=== PATIENT | female | born 1975 | race American Indian/Alaskan Native ===

== ENCOUNTER 2019-08-18 10:53 | Inpatient (IN) | payer OTHER ==
[2019-08-18 11:28] LABS: Bacteria,Urine 1+ /HPF (Negative); Bilirubin,Urine NEG (Negative); Blood,Urine NEG (Negative); Color,Urine Colorless (Yellow); Protein,Urine <15 mg/dL mg/dL (Negative); Urobilinogen,Urine < 2.0 mg/dL (<2.0)
[2019-08-18 11:44] LABS: Basophils % (Auto) 0.3 % (0.0-1.8); Lymphocytes # (Auto) 0.9 K/mm3 (1.2-5.4); Lymphocytes % (Auto) 12.8 % (13.4-35.0); Mean Corpuscular HGB Conc 30 % (30-34); Mean Corpuscular Volume 96 fl (79-97); Monocytes # (Auto) 0.5 K/mm3 (0.0-0.8); Monocytes % (Auto) 7.9 % (0.0-7.3); Platelet Count 286 K/mm3 (140-440); Red Blood Count 5.02 M/mm3 (3.65-5.03); Red Cell Distribution Width 15.4 % (13.2-15.2)
[2019-08-18 11:46] LABS: Hematocrit 48.4 % (30.3-42.9); Hemoglobin 14.7 gm/dl (10.1-14.3)
[2019-08-18] MEDS ORDERED: ONDANSETRON 4 MG/2 ML INJ IV ONE (12:12)
[2019-08-18 12:20] LABS: Albumin 4.4 g/dL (3.9-5); Calcium 11.4 mg/dL (8.4-10.2)
--- NOTE | 2019-08-18 13:00 | Emergency Department Report ---
HPI - General Chief Complaint: Nausea/Vomiting/Diarrhea Time Seen by Provider: 08/18/19 12:11 - HPI HPI: 44-year-old -[place] female presents to the emergency department with complaint of a 1 week history of nausea, vomiting and diarrhea and the patient says "I am dehydrated." The patient denies any past medical history but she also does not follow regularly with any primary care physician and says her last physical examination was greater than 4 years ago. She has not taken anything for her symptoms prior to presentation. Denies any recent travel or sick contacts at home. No fever, chest pain, lower extremity swelling. She does complain of some generalized weakness and fatigue. The patient will occasionally feel short of breath. ED Past Medical Hx - Past Medical History Previous Medical History?: No - Surgical History Past Surgical History?: No - Social History Smoking Status: Never Smoker Substance Use Type: None ED Review of Systems ROS: Stated complaint: SOB/NAUSEA Other details as noted in HPI Comment: All other systems reviewed and negative Constitutional: weakness. denies: fever Eyes: denies: eye pain, vision change ENT: denies: ear pain, throat pain Respiratory: shortness of breath. denies: cough Cardiovascular: denies: chest pain, palpitations Gastrointestinal: abdominal pain, nausea, vomiting, diarrhea Genitourinary: denies: dysuria, discharge Musculoskeletal: denies: back pain, arthralgia Skin: denies: rash, lesions Neurological: denies: headache, numbness Physical Exam - Physical Exam Vital Signs: Vital Signs 08/18/19 11:00 Temperature 98.8 F Pulse Rate 125 H Respiratory 18 Rate Blood Pressure 183/100 O2 Sat by Pulse 94 Oximetry Physical Exam: GENERAL: Ill-appearing. HENT: Normocephalic. Atraumatic. Patient has moist mucous membranes. EYES: Extraocular motions are intact. NECK: Supple. Trachea is midline. CHEST/LUNGS: Clear to auscultation. There is no respiratory distress noted. HEART/CARDIOVASCULAR: Regular. There is moderate tachycardia. There is no murmur. ABDOMEN: Abdomen is soft, nontender. Patient has normal bowel sounds. Obese habitus. SKIN: Skin is warm and dry. NEURO: The patient is awake, alert, and cooperative. The patient has no focal neurologic deficits. Normal speech. MUSCULOSKELETAL: There is no tenderness or deformity. There is no evidence of acute injury. ED Course Vital Signs 08/18/19 11:00 Temperature 98.8 F Pulse Rate 125 H Respiratory 18 Rate Blood Pressure 183/100 O2 Sat by Pulse 94 Oximetry ED Medical Decision Making - Lab Data Result diagrams: 08/18/19 11:18 08/18/19 11:18 - Radiology Data Radiology results: image reviewed interpreted by me: Chest x-ray does not show any acute process. There are no pleural effusions, obvious pneumonia and there is no pneumothorax. - Medical Decision Making This patient presents with a one-week history of nausea, vomiting, diarrhea and intermittent shortness of breath. She has some tachycardia. No signs of any respiratory distress. Patient had a critical high Accu-Chek of greater than 500. Labs came back consistent with both new onset diabetes and diabetic ketoacidosis with a blood sugar greater than 1500, an elevated anion gap and venous acidosis and the blood was positive for ketones. Given IV fluid resuscitation and started on insulin drip. The patient will be admitted to the ICU and has been accepted by the hospitalist, Dr. Roberts. - Differential Diagnosis DKA, HHNK, Food Poisoning, Sepsis Critical Care Time: Yes Critical care time in (mins) excluding proc time.: 35 Critical care attestation.: If time is entered above; I have spent that time in minutes in the direct care of this critically ill patient, excluding procedure time. Critical care time was spent on this patient and doing her initial evaluation, multiple re- evaluations, ordering and interpretation of labs and imaging, ordering of IV fluid resuscitation and the insulin drip. Critical Care Time: 35 minutes ED Disposition Clinical Impression: Diabetes mellitus, new onset Diabetic keto-acidosis Qualifiers: Diabetes mellitus type: other specified (including NASEEM) Diabetes mellitus complication detail: without coma Qualified Code(s): E13.10 - Other specified diabetes mellitus with ketoacidosis without coma Disposition: 09 OP ADMIT IP TO THIS HOSP Is pt being admited?: Yes Condition: Serious Time of Disposition: 13:01
[2019-08-18] MEDS ORDERED: SODIUM CHLORIDE 0.9% 1000 ML 1,000 ML ONE ×2 (13:25→15:46)
--- NOTE | 2019-08-18 13:27 | XRay Report ---
CHEST 1 VIEW 08/18/2019 12:59 PM INDICATION / CLINICAL INFORMATION: SOB. COMPARISON: None available. FINDINGS: SUPPORT DEVICES: None. HEART / MEDIASTINUM: No significant abnormality. LUNGS / PLEURA: Lung volumes are reduced with bibasilar atelectasis. No additional significant pulmon wyatt abnormality or pleural effusion. No pneumothorax. ADDITIONAL FINDINGS: No significant additional findings. IMPRESSION: 1. No acute abnormality of the chest. 2. Low lung volumes with bibasilar atelectasis. Signer Name: Juanito Pack MD Signed: 08/18/2019 1:23 PM Workstation Name: [id number]
[2019-08-18] MEDS ORDERED: INSULIN REGULAR, HUMAN 100 UNITS in SODIUM CHLORIDE 0.9% 99 ML IV SCH ×3 (14:00→23:00)
[2019-08-18] MEDS ORDERED: SODIUM CHLORIDE 0.9% 1000 ML 2,000 ML IV ONE (14:42)
[2019-08-18] MEDS ORDERED: ACETAMINOPHEN 325 MG TAB PO PRN (16:34)
--- NOTE | 2019-08-18 16:34 | History and Physical Report ---
History of Present Illness Date of examination: 08/18/19 Date of admission: 08/18/19 13:02 Chief complaint: Generalized weakness and vomiting for 3 days History of present illness: 43-year-old -[place] female with no significant past medical history comes in for generalized weakness and nausea and vomiting for 3 days. Patient says that she feels dehydrated. Patient has polyuria and polydipsia. Patient has not seen a primary care physician in the last 4 years. Patient does not know that she has diabetes. Patient also has blurred vision. No dysuria. No fever or chills. No shortness of breath. Feels very weak. Past Medical History Previous Medical History?: No Surgical History Past Surgical History?: No Social History Smoking Status: Never Smoker Substance Use Type: None Family history HTN Review of Systems ROS: Stated complaint: SOB/NAUSEA Other details as noted in HPI Comment: All other systems reviewed and negative Constitutional: weakness. denies: fever Eyes: denies: eye pain, vision change ENT: denies: ear pain, throat pain Respiratory: shortness of breath. denies: cough Cardiovascular: denies: chest pain, palpitations Gastrointestinal: abdominal pain, nausea, vomiting, diarrhea Genitourinary: denies: dysuria, discharge Musculoskeletal: denies: back pain, arthralgia Skin: denies: rash, lesions Neurological: denies: headache, numbness Medications and Allergies Allergies Allergy/AdvReac Type Severity Reaction Status Date / Time No Known Allergies Allergy Unverified 08/18/19 10:54 Active Meds: Active Medications Insulin Human Regular 100 (units/ Sodium Chloride) 100 mls @ 6 mls/hr IV TITR BIMAL; Protocol Last Admin: 08/18/19 14:30 Dose: 6 units/hr, 6 mls/hr Documented by: Sodium Chloride (Nacl 0.9% 1000 Ml) 2,000 mls @ 999 mls/hr IV BOLUS ONE Stop: 08/18/19 16:42 Last Admin: 08/18/19 14:44 Dose: 999 mls/hr Documented by: Exam - Constitutional Vitals: Temp Pulse Resp BP Pulse Ox 98.8 F 116 H 24 133/95 95 08/18/19 11:00 08/18/19 14:01 08/18/19 14:30 08/18/19 14:30 08/18/19 14:30 General appearance: Present: no acute distress, well-nourished - EENT Eyes: Present: PERRL ENT: hearing intact, clear oral mucosa - Neck Neck: Present: supple, normal ROM - Respiratory Respiratory effort: normal Respiratory: bilateral: CTA - Cardiovascular Heart rate: 88 Rhythm: regular Heart Sounds: Present: S1 & S2. Absent: rub, click - Extremities Extremities: no ischemia, pulses intact, pulses symmetrical, No edema Peripheral Pulses: within normal limits - Abdominal General gastrointestinal: Present: soft, non-tender, non-distended, normal bowel sounds Female genitourinary: Present: normal - Rectal Rectal Exam: deferred - Integumentary Integumentary: Present: clear, warm, dry - Musculoskeletal Musculoskeletal: gait normal, strength equal bilaterally - Psychiatric Psychiatric: appropriate mood/affect, intact judgment & insight - Neurologic Neurologic: CNII-XII intact, moves all extremities - Allied Health Allied health notes reviewed: nursing, case management Results - Labs CBC & Chem 7: 08/18/19 11:18 08/18/19 21:27 Labs: Laboratory Last Values WBC 6.9 K/mm3 (4.5-11.0) 08/18/19 11:18 RBC 5.02 M/mm3 (3.65-5.03) 08/18/19 11:18 Hgb 14.7 gm/dl (10.1-14.3) H 08/18/19 11:18 Hct 48.4 % (30.3-42.9) H 08/18/19 11:18 MCV 96 fl (79-97) 08/18/19 11:18 MCH 29 pg (28-32) 08/18/19 11:18 MCHC 30 % (30-34) 08/18/19 11:18 RDW 15.4 % (13.2-15.2) H 08/18/19 11:18 Plt Count 286 K/mm3 (140-440) 08/18/19 11:18 Lymph % (Auto) 12.8 % (13.4-35.0) L 08/18/19 11:18 [place] % (Auto) 7.9 % (0.0-7.3) H 08/18/19 11:18 Eos % (Auto) 0.0 % (0.0-4.3) 08/18/19 11:18 Baso % (Auto) 0.3 % (0.0-1.8) 08/18/19 11:18 Lymph # 0.9 K/mm3 (1.2-5.4) L 08/18/19 11:18 [place] # 0.5 K/mm3 (0.0-0.8) 08/18/19 11:18 Eos # 0.0 K/mm3 (0.0-0.4) 08/18/19 11:18 Baso # 0.0 K/mm3 (0.0-0.1) 08/18/19 11:18 Seg Neutrophils % 79.0 % (40.0-70.0) H 08/18/19 11:18 Seg Neutrophils # 5.5 K/mm3 (1.8-7.7) 08/18/19 11:18 VBG pH 7.302 (7.320-7.420) L 08/18/19 12:34 Sodium 129 mmol/L (137-145) L 08/18/19 11:18 Potassium 5.0 mmol/L (3.6-5.0) 08/18/19 11:18 Chloride 83.9 mmol/L (98-107) L 08/18/19 11:18 Carbon Dioxide 17 mmol/L (22-30) L 08/18/19 11:18 Anion Gap 33 mmol/L 08/18/19 11:18 BUN 35 mg/dL (7-17) H 08/18/19 11:18 Creatinine 1.1 mg/dL (0.7-1.2) 08/18/19 11:18 Estimated GFR 54 ml/min 08/18/19 11:18 BUN/Creatinine Ratio 32 % 08/18/19 11:18 Glucose 1522 mg/dL (65-100) H* 08/18/19 11:18 POC Glucose > 500 (70-105) H 08/18/19 15:35 Ketones Quantitative Moderate (Negative) 08/18/19 12:34 Calcium 11.4 mg/dL (8.4-10.2) H 08/18/19 11:18 Total Bilirubin 0.30 mg/dL (0.1-1.2) 08/18/19 11:18 AST 19 units/L (5-40) 08/18/19 11:18 ALT 38 units/L (7-56) 08/18/19 11:18 Alkaline Phosphatase 121 units/L (35-129) 08/18/19 11:18 Total Protein 9.5 g/dL (6.3-8.2) H 08/18/19 11:18 Albumin 4.4 g/dL (3.9-5) 08/18/19 11:18 Albumin/Globulin Ratio 0.9 % 08/18/19 11:18 HCG, Qual Negative (Negative) 08/18/19 11:22 Urine Color Colorless (Yellow) 08/18/19 11:15 Urine Turbidity Clear (Clear) 08/18/19 11:15 Urine pH 6.0 (5.0-7.0) 08/18/19 11:15 Ur Specific [place] 1.026 (1.003-1.030) 08/18/19 11:15 Urine Protein <15 mg/dl mg/dL (Negative) 08/18/19 11:15 Urine Glucose (UA) >=500 mg/dL (Negative) 08/18/19 11:15 Urine Ketones 20 mg/dL (Negative) 08/18/19 11:15 Urine Blood Neg (Negative) 08/18/19 11:15 Urine Nitrite Neg (Negative) 08/18/19 11:15 Urine Bilirubin Neg (Negative) 08/18/19 11:15 Urine Urobilinogen < 2.0 mg/dL (<2.0) 08/18/19 11:15 Ur Leukocyte Esterase Tr (Negative) 08/18/19 11:15 Urine WBC (Auto) 11.0 /HPF (0.0-6.0) H 08/18/19 11:15 Urine RBC (Auto) 6.0 /HPF (0.0-6.0) 08/18/19 11:15 Urine Bacteria (Auto) 1+ /HPF (Negative) 08/18/19 11:15 Short CBC 08/18/19 Range/Units 11:18 WBC 6.9 (4.5-11.0) K/mm3 Hgb 14.7 H (10.1-14.3) gm/dl Hct 48.4 H (30.3-42.9) % Plt Count 286 (140-440) K/mm3 BMP 08/18/19 08/18/19 08/18/19 11:18 17:26 21:27 Sodium 129 L 142 D 146 H Potassium 5.0 5.2 H 4.5 Chloride 83.9 L 101.2 108.2 H Carbon Dioxide 17 L 21 L 22 BUN 35 H 37 H 37 H Creatinine 1.1 1.2 1.3 H Glucose 1522 H* 1039 H* 786 H* Calcium 11.4 H 12.0 H 11.8 H Liver Function 08/18/19 Range/Units 11:18 Total Bilirubin 0.30 (0.1-1.2) mg/dL AST 19 (5-40) units/L ALT 38 (7-56) units/L Alkaline Phosphatase 121 (35-129) units/L Albumin 4.4 (3.9-5) g/dL Urine 08/18/19 Range/Units 11:15 Urine Color Colorless (Yellow) Urine pH 6.0 (5.0-7.0) Ur Specific [place] 1.026 (1.003-1.030) Urine Protein <15 mg/dl (Negative) mg/dL Urine Glucose (UA) >=500 (Negative) mg/dL - Imaging and Cardiology EKG: report reviewed Chest x-ray: report reviewed (no acute findings) Assessment and Plan Assessment and plan: Critical care time 40 minutes Advance Directives: Yes (full code) VTE prophylaxis?: Chemical Plan of care discussed with patient/family: Yes - Patient Problems (1) Hyperosmolar non-ketotic state in patient with type 2 diabetes mellitus Current Visit: Yes Status: Acute Plan to address problem: Patient's clinical picture and labs and history consistent with new-onset diabetes and hyperosmolar state. Ketones are only 20 in the urine. Anion gap is 30 Patient is not in diabetic ketoacidosis Insulin drip initiated IV fluids initiated Follow-up fluids are half-normal saline because patient has a tendency for hyper natremia Patient did get diabetes education I've discussed with the patient but patient says she is very sleepy Primary team to discuss her new-onset diabetes and the need for regular follow- ups Also either basal bolus regimen or Novolin 70/30 twice a day Hemoglobin A1c is very high indicating patient has diabetes for last 6 months to 1 year (2) Hyponatremia Current Visit: Yes Status: Acute Plan to address problem: Should correct with correction of blood glucose Patient has pseudohyponatremia (3) Metabolic acidosis Current Visit: Yes Status: Acute Plan to address problem: Should correct with correction of blood glucose Metabolic acidosis is moderate (4) Urinary tract infection Current Visit: Yes Status: Acute Qualifiers: Urinary tract infection type: acute cystitis Plan to address problem: IV Rocephin 1 g IV piggyback every 24 (5) DVT prophylaxis Current Visit: Yes Status: Acute Plan to address problem: On heparin and GI prophylaxis
[2019-08-18] MEDS ORDERED: DEXTROSE 50% IN WATER (25GM) 50 ML SYRINGE IV PRN (16:39)
[2019-08-18] MEDS ORDERED: POTASSIUM CHLORIDE 10 MEQ 10 MEQ/100 ML BAG IV SCH (17:00)
[2019-08-18] MEDS ORDERED: POTASSIUM CHLORIDE 10 MEQ 10 MEQ/100 ML BAG IV PRN ×2 (17:00→18:00)
[2019-08-18 22:05] LABS: Calcium 11.8 mg/dL (8.4-10.2)
[2019-08-18] MEDS: FAMOTIDINE 20 MG/2 ML INJ IV SCH (23:25)
[2019-08-18] MEDS ORDERED: SODIUM CHLORIDE 0.45% 500 ML IV SCH (23:45)
[2019-08-19 02:23] LABS: Calcium 11.9 mg/dL (8.4-10.2)
[2019-08-19 03:56] LABS: Calcium 11.5 mg/dL (8.4-10.2)
[2019-08-19 03:58] LABS: Calcium 11.6 mg/dL (8.4-10.2)
[2019-08-19 05:46] LABS: Calcium 11.6 mg/dL (8.4-10.2)
[2019-08-19] MEDS ORDERED: INSULIN NPH/REGULAR 70/30 INJ SUB-Q SCH (08:00)
[2019-08-19] MEDS ORDERED: LINAGLIPTIN 5 MG TAB PO SCH (08:00)
[2019-08-19 08:30] LABS: Calcium 11.6 mg/dL (8.4-10.2)
[2019-08-19] MEDS ORDERED: INSULIN GLARGINE 100 UNITS/ML SUB-Q ONE (09:10)
[2019-08-19] MEDS ORDERED: INSULIN REGULAR, HUMAN 100 UNITS/1 ML ONE ×3 (10:37→15:32)
[2019-08-19] MEDS: INSULIN LISPRO 100 UNIT/ML SUB-Q SCH ×6 (10:45→23:26)
[2019-08-19] MEDS: cefTRIAXone/NS 1 GM/50 ML 1 GM/50 ML BAG IV SCH (10:56)
--- NOTE | 2019-08-19 13:18 | Progress Note ---
Assessment and Plan Assessment and plan: HHS in newly diagnosed DM -started on SC insulin regimen, adjust as needed -off insulin drip -hba1c: 12.4 -diabetic teaching before d/c Intractable N/V -improving -on anti-emetics CONCHIS due to dehydration -cont IVF, will monitor cr level Hypernatremia due to dehydration -cont IVF, will monitor Na level Possible UTI -on IV Rocephin -urine culture insignificant Pseudohyponatremia due to hyperglycemia -resolved Hyperkalemia -resolved Morbid obesity with BMI of 40.4 -lifestyle modifications recommended DVT ppx: SCD Disp: will downgrade pt to med/surg floor. For possible d/c tomorrow if BG rem ains stable History Interval history: Pt complained of generalized abd pain. No n/v. Hospitalist Physical - Constitutional Vitals: Temp Pulse Resp BP Pulse Ox 98.8 F 97 H 22 122/89 96 08/18/19 11:00 08/19/19 11:00 08/19/19 11:00 08/19/19 11:00 08/19/19 11:00 General appearance: Present: no acute distress, obese - EENT Eyes: Present: PERRL, EOM intact ENT: hearing intact - Neck Neck: Present: supple - Respiratory Respiratory effort: normal Respiratory: bilateral: CTA - Cardiovascular Rhythm: regular Heart Sounds: Present: S1 & S2 - Extremities Extremities: No edema - Abdominal General gastrointestinal: soft, tender (mild and generalized), distended, normal bowel sounds - Integumentary Integumentary: Present: warm, dry - Psychiatric Psychiatric: appropriate mood/affect - Neurologic Neurologic: CNII-XII intact Results - Labs CBC & Chem 7: 08/18/19 11:18 08/19/19 08:07 Labs: Laboratory Last Values WBC 6.9 K/mm3 (4.5-11.0) 08/18/19 11:18 RBC 5.02 M/mm3 (3.65-5.03) 08/18/19 11:18 Hgb 14.7 gm/dl (10.1-14.3) H 08/18/19 11:18 Hct 48.4 % (30.3-42.9) H 08/18/19 11:18 MCV 96 fl (79-97) 08/18/19 11:18 MCH 29 pg (28-32) 08/18/19 11:18 MCHC 30 % (30-34) 08/18/19 11:18 RDW 15.4 % (13.2-15.2) H 08/18/19 11:18 Plt Count 286 K/mm3 (140-440) 08/18/19 11:18 Lymph % (Auto) 12.8 % (13.4-35.0) L 08/18/19 11:18 [place] % (Auto) 7.9 % (0.0-7.3) H 08/18/19 11:18 Eos % (Auto) 0.0 % (0.0-4.3) 08/18/19 11:18 Baso % (Auto) 0.3 % (0.0-1.8) 08/18/19 11:18 Lymph # 0.9 K/mm3 (1.2-5.4) L 08/18/19 11:18 [place] # 0.5 K/mm3 (0.0-0.8) 08/18/19 11:18 Eos # 0.0 K/mm3 (0.0-0.4) 08/18/19 11:18 Baso # 0.0 K/mm3 (0.0-0.1) 08/18/19 11:18 Seg Neutrophils % 79.0 % (40.0-70.0) H 08/18/19 11:18 Seg Neutrophils # 5.5 K/mm3 (1.8-7.7) 08/18/19 11:18 VBG pH 7.302 (7.320-7.420) L 08/18/19 12:34 Sodium 156 mmol/L (137-145) H 08/19/19 08:07 Potassium 4.3 mmol/L (3.6-5.0) 08/19/19 08:07 Chloride 113.1 mmol/L (98-107) H 08/19/19 08:07 Carbon Dioxide 24 mmol/L (22-30) 08/19/19 08:07 Anion Gap 23 mmol/L 08/19/19 08:07 BUN 44 mg/dL (7-17) H 08/19/19 08:07 Creatinine 1.4 mg/dL (0.7-1.2) H 08/19/19 08:07 Estimated GFR 49 ml/min 08/19/19 08:07 BUN/Creatinine Ratio 31 % 08/19/19 08:07 Glucose 445 mg/dL (65-100) H 08/19/19 08:07 POC Glucose 395 (70-105) H 08/19/19 12:48 Hemoglobin A1c 12.4 % (4-6) H 08/18/19 17:26 Ketones Quantitative Moderate (Negative) 08/18/19 12:34 Calcium 11.6 mg/dL (8.4-10.2) H 08/19/19 08:07 Phosphorus 3.70 mg/dL (2.5-4.5) 08/18/19 17:26 Magnesium 3.50 mg/dL (1.7-2.3) H 08/18/19 17:26 Total Bilirubin 0.30 mg/dL (0.1-1.2) 08/18/19 11:18 AST 19 units/L (5-40) 08/18/19 11:18 ALT 38 units/L (7-56) 08/18/19 11:18 Alkaline Phosphatase 121 units/L (35-129) 08/18/19 11:18 Total Protein 9.5 g/dL (6.3-8.2) H 08/18/19 11:18 Albumin 4.4 g/dL (3.9-5) 08/18/19 11:18 Albumin/Globulin Ratio 0.9 % 08/18/19 11:18 HCG, Qual Negative (Negative) 08/18/19 11:22 Urine Color Colorless (Yellow) 08/18/19 11:15 Urine Turbidity Clear (Clear) 08/18/19 11:15 Urine pH 6.0 (5.0-7.0) 08/18/19 11:15 Ur Specific [place] 1.026 (1.003-1.030) 08/18/19 11:15 Urine Protein <15 mg/dl mg/dL (Negative) 08/18/19 11:15 Urine Glucose (UA) >=500 mg/dL (Negative) 08/18/19 11:15 Urine Ketones 20 mg/dL (Negative) 08/18/19 11:15 Urine Blood Neg (Negative) 08/18/19 11:15 Urine Nitrite Neg (Negative) 08/18/19 11:15 Urine Bilirubin Neg (Negative) 08/18/19 11:15 Urine Urobilinogen < 2.0 mg/dL (<2.0) 08/18/19 11:15 Ur Leukocyte Esterase Tr (Negative) 08/18/19 11:15 Urine WBC (Auto) 11.0 /HPF (0.0-6.0) H 08/18/19 11:15 Urine RBC (Auto) 6.0 /HPF (0.0-6.0) 08/18/19 11:15 Urine Bacteria (Auto) 1+ /HPF (Negative) 08/18/19 11:15 Active Medications - Current Medications Current Medications: Generic Name Dose Route Start Last Admin Trade Name Freq PRN Reason Stop Dose Admin Acetaminophen 650 mg 08/18/19 16:34 Tylenol PO Q4H PRN Pain MILD(1-3)/Fever >100.5/PEDRO Dextrose 0 ml 08/18/19 16:39 D50w (25gm) Syringe IV Q30MIN PRN Hypoglycemia Protocol Famotidine 20 mg 08/18/19 22:00 08/18/19 23:25 Pepcid IV 20 mg BID BIMAL Administration Hydromorphone HCl 0.5 mg 08/18/19 16:34 Dilaudid IV Q3H PRN Pain , Severe (7-10) Potassium Chloride 10 meq in 100 mls @ 100 mls/hr 08/18/19 17:00 Kcl 10meq/100ml IV Q1H PRN K+ BETWEEN 2.6-2.9 Potassium Chloride 10 meq in 100 mls @ 100 mls/hr 08/18/19 18:00 Kcl 10meq/100ml IV Q1H PRN K+ BETWEEN 3-3.3 Insulin Human Regular 100 100 mls @ 1 mls/hr 08/18/19 23:00 08/19/19 08:48 units/ Sodium Chloride IV 16 units/hr TITR BIMAL 16 mls/hr Titration Protocol 1 UNITS/HR Sodium Chloride 500 mls @ 125 mls/hr 08/18/19 23:45 08/19/19 06:57 Nacl 0.45% IV 125 mls/hr DIRECT BIMAL Administration Ceftriaxone Sodium 1 gm in 50 mls @ 100 mls/hr 08/19/19 10:00 08/19/19 10:56 Rocephin/Ns 1 Gm/50 Ml IV 100 mls/hr Q24HR BIMAL Administration Protocol Insulin Glargine 20 units 08/19/19 22:00 Lantus SUB-Q QHS BIMAL Insulin Human Lispro 0 unit 08/19/19 11:30 Humalog SUB-Q ACHS BIMAL Protocol Insulin Human Lispro 5 unit 08/19/19 09:16 08/19/19 10:45 Humalog SUB-Q 5 unit TID BIMAL Administration Ondansetron HCl 4 mg 08/18/19 16:34 Zofran IV Q8H PRN Nausea And Vomiting Oxycodone/Acetaminophen 1 tab 08/18/19 16:34 Percocet 5/325 PO Q6H PRN Pain, Moderate (4-6) Sodium Chloride 10 ml 08/18/19 22:00 08/18/19 23:25 Sodium Chloride Flush Syringe 10 Ml IV 10 ml BID BIMAL Administration Sodium Chloride 10 ml 08/18/19 16:34 Sodium Chloride Flush Syringe 10 Ml IV PRN PRN LINE FLUSH Nutrition/Malnutrition Assess - Dietary Evaluation Nutrition/Malnutrition Findings: Nutrition Notes Start: 08/19/19 10:19 Freq: Status: Active Protocol: Document 08/19/19 10:19 LP (Rec: 08/19/19 10:21 LP [id number]) Nutrition Notes Need for Assessment generated from: MD Order Initial or Follow up Brief Note Current Diagnosis Diabetes Other Pertinent Diagnosis DKA, UTI Current Diet Consistent CHO Labs/Tests Na 153 BUN 41 Cr 1.4 BG 563 A1c 12.4 Pertinent Medications Insulin drip KCL Height 5 ft 9 in Weight 124 kg [place] Body Weight (kg) 65.90 BMI 40.4 Subjective/Other Information Consult for diet education. Pt in ED. Nutrition Intervention Follow-Up By: 08/20/19 Additional Comments Follow for DM education
[2019-08-19] MEDS: FAMOTIDINE 20 MG/2 ML INJ IV SCH ×2 (13:20→23:25)
[2019-08-19] MEDS ORDERED: HYDROmorphone 1 MG/1 ML INJ ONE (13:46)
[2019-08-19] MEDS: HYDROmorphone 1 MG/1 ML INJ IV PRN (13:52)
[2019-08-19] MEDS ORDERED: INSULIN LISPRO 100 UNIT/ML SUB-Q ONE ×2 (16:53→20:19)
[2019-08-19] MEDS: FLUCONAZOLE 100 MG TAB PO SCH (20:24)
[2019-08-19] MEDS ORDERED: INSULIN GLARGINE 100 UNITS/ML SUB-Q SCH (22:00)
[2019-08-19] MEDS: ONDANSETRON 4 MG/2 ML INJ IV PRN (23:38)
[2019-08-20] MEDS ORDERED: INSULIN REGULAR, HUMAN 100 UNITS/1 ML SUB-Q ONE ×2 (02:44→06:51)
[2019-08-20] MEDS ORDERED: SODIUM CHLORIDE 0.9% 1000 ML 1,000 ML IV SCH (02:45)
[2019-08-20] MEDS: HYDROmorphone 1 MG/1 ML INJ IV PRN (03:52)
[2019-08-20 06:02] LABS: Calcium 10.3 mg/dL (8.4-10.2)
--- NOTE | 2019-08-20 08:09 | Progress Note ---
Assessment and Plan Assessment and plan: 44-year-old -[place]aced[place] female presents to the emergency department with complaint of a 1 week history of nausea, vomiting and diarrhea and the patient says "I am dehydrated." HHS in newly diagnosed DM -started on [place] insulin regimen, adjust as needed -off insulin drip -hba1c: 12.4 -diabetic teaching before d/c Intractable N/V -improving -on anti-emetics CONCHIS due to dehydration -cont IVF, will monitor cr level Hypernatremia due to dehydration -cont IVF, will monitor Na level Possible UTI -on IV Rocephin Pseudohyponatremia due to hyperglycemia -resolved Hyperkalemia -resolved Morbid obesity with BMI of 40.4 -lifestyle modifications recommended DVT ppx: SCD Disp: will downgrade pt to med/surg floor. For possible d/c tomorrow if BG remains stable Hospitalist Physical - Constitutional Vitals: Temp Pulse Resp BP Pulse Ox 98.6 F 109 H 18 140/91 97 08/19/19 22:10 08/19/19 22:10 08/20/19 04:22 08/19/19 22:10 08/19/19 22:10 General appearance: Present: no acute distress, obese Results - Labs CBC & Chem 7: 08/21/19 05:11 08/21/19 05:11 Labs: Laboratory Last Values WBC 6.9 K/mm3 (4.5-11.0) 08/18/19 11:18 RBC 5.02 M/mm3 (3.65-5.03) 08/18/19 11:18 Hgb 14.7 gm/dl (10.1-14.3) H 08/18/19 11:18 Hct 48.4 % (30.3-42.9) H 08/18/19 11:18 MCV 96 fl (79-97) 08/18/19 11:18 MCH 29 pg (28-32) 08/18/19 11:18 MCHC 30 % (30-34) 08/18/19 11:18 RDW 15.4 % (13.2-15.2) H 08/18/19 11:18 Plt Count 286 K/mm3 (140-440) 08/18/19 11:18 Lymph % (Auto) 12.8 % (13.4-35.0) L 08/18/19 11:18 [place] % (Auto) 7.9 % (0.0-7.3) H 08/18/19 11:18 Eos % (Auto) 0.0 % (0.0-4.3) 08/18/19 11:18 Baso % (Auto) 0.3 % (0.0-1.8) 08/18/19 11:18 Lymph # 0.9 K/mm3 (1.2-5.4) L 08/18/19 11:18 [place] # 0.5 K/mm3 (0.0-0.8) 08/18/19 11:18 Eos # 0.0 K/mm3 (0.0-0.4) 08/18/19 11:18 Baso # 0.0 K/mm3 (0.0-0.1) 08/18/19 11:18 Seg Neutrophils % 79.0 % (40.0-70.0) H 08/18/19 11:18 Seg Neutrophils # 5.5 K/mm3 (1.8-7.7) 08/18/19 11:18 VBG pH 7.302 (7.320-7.420) L 08/18/19 12:34 Sodium 157 mmol/L (137-145) H 08/20/19 05:19 Potassium 5.1 mmol/L (3.6-5.0) H 08/20/19 05:19 Chloride 116.5 mmol/L (98-107) H 08/20/19 05:19 Carbon Dioxide 25 mmol/L (22-30) 08/20/19 05:19 Anion Gap 21 mmol/L 08/20/19 05:19 BUN 53 mg/dL (7-17) H 08/20/19 05:19 Creatinine 1.5 mg/dL (0.7-1.2) H 08/20/19 05:19 Estimated GFR 45 ml/min 08/20/19 05:19 BUN/Creatinine Ratio 35 % 08/20/19 05:19 Glucose 652 mg/dL (65-100) H* 08/20/19 05:19 POC Glucose 452 (70-105) H 08/20/19 02:37 Hemoglobin A1c 12.4 % (4-6) H 08/18/19 17:26 Ketones Quantitative Moderate (Negative) 08/18/19 12:34 Calcium 10.3 mg/dL (8.4-10.2) H 08/20/19 05:19 Phosphorus 3.70 mg/dL (2.5-4.5) 08/18/19 17:26 Magnesium 3.50 mg/dL (1.7-2.3) H 08/18/19 17:26 Total Bilirubin 0.30 mg/dL (0.1-1.2) 08/18/19 11:18 AST 19 units/L (5-40) 08/18/19 11:18 ALT 38 units/L (7-56) 08/18/19 11:18 Alkaline Phosphatase 121 units/L (35-129) 08/18/19 11:18 Total Protein 9.5 g/dL (6.3-8.2) H 08/18/19 11:18 Albumin 4.4 g/dL (3.9-5) 08/18/19 11:18 Albumin/Globulin Ratio 0.9 % 08/18/19 11:18 HCG, Qual Negative (Negative) 08/18/19 11:22 Urine Color Colorless (Yellow) 08/18/19 11:15 Urine Turbidity Clear (Clear) 08/18/19 11:15 Urine pH 6.0 (5.0-7.0) 08/18/19 11:15 Ur Specific [place] 1.026 (1.003-1.030) 08/18/19 11:15 Urine Protein <15 mg/dl mg/dL (Negative) 08/18/19 11:15 Urine Glucose (UA) >=500 mg/dL (Negative) 08/18/19 11:15 Urine Ketones 20 mg/dL (Negative) 08/18/19 11:15 Urine Blood Neg (Negative) 08/18/19 11:15 Urine Nitrite Neg (Negative) 08/18/19 11:15 Urine Bilirubin Neg (Negative) 08/18/19 11:15 Urine Urobilinogen < 2.0 mg/dL (<2.0) 08/18/19 11:15 Ur Leukocyte Esterase Tr (Negative) 08/18/19 11:15 Urine WBC (Auto) 11.0 /HPF (0.0-6.0) H 08/18/19 11:15 Urine RBC (Auto) 6.0 /HPF (0.0-6.0) 08/18/19 11:15 Urine Bacteria (Auto) 1+ /HPF (Negative) 08/18/19 11:15 Active Medications - Current Medications Current Medications: Generic Name Dose Route Start Last Admin Trade Name Freq PRN Reason Stop Dose Admin Acetaminophen 650 mg 08/18/19 16:34 Tylenol PO Q4H PRN Pain MILD(1-3)/Fever >100.5/PEDRO Dextrose 0 ml 08/18/19 16:39 D50w (25gm) Syringe IV Q30MIN PRN Hypoglycemia Protocol Famotidine 20 mg 08/18/19 22:00 08/19/19 23:25 Pepcid IV 20 mg BID BIMAL Administration Fluconazole 150 mg 08/19/19 18:00 08/19/19 20:24 Diflucan PO 08/22/19 23:59 150 mg QDAY BIMAL Administration Hydromorphone HCl 0.5 mg 08/18/19 16:34 08/20/19 03:52 Dilaudid IV 0.5 mg Q3H PRN Administration Pain , Severe (7-10) Potassium Chloride 10 meq in 100 mls @ 100 mls/hr 08/18/19 17:00 Kcl 10meq/100ml IV Q1H PRN K+ BETWEEN 2.6-2.9 Potassium Chloride 10 meq in 100 mls @ 100 mls/hr 08/18/19 18:00 Kcl 10meq/100ml IV Q1H PRN K+ BETWEEN 3-3.3 Ceftriaxone Sodium 1 gm in 50 mls @ 100 mls/hr 08/19/19 10:00 08/19/19 10:56 Rocephin/Ns 1 Gm/50 Ml IV 100 mls/hr Q24HR BIMAL Administration Protocol Insulin Glargine 20 units 08/20/19 10:00 Lantus SUB-Q BID BIMAL Insulin Human Lispro 0 unit 08/19/19 11:30 08/19/19 23:26 Humalog SUB-Q 8 unit ACHS BIMAL Administration Protocol Insulin Human Lispro 10 unit 08/20/19 11:30 Humalog SUB-Q AC BIMAL Ondansetron HCl 4 mg 08/18/19 16:34 08/19/19 23:38 Zofran IV 4 mg Q8H PRN Administration Nausea And Vomiting Oxycodone/Acetaminophen 1 tab 08/18/19 16:34 Percocet 5/325 PO Q6H PRN Pain, Moderate (4-6) Sodium Chloride 10 ml 08/18/19 22:00 08/19/19 23:27 Sodium Chloride Flush Syringe 10 Ml IV 10 ml BID BIMAL Administration Sodium Chloride 10 ml 08/18/19 16:34 Sodium Chloride Flush Syringe 10 Ml IV PRN PRN LINE FLUSH Nutrition/Malnutrition Assess - Dietary Evaluation Nutrition/Malnutrition Findings: Nutrition Notes Start: 08/19/19 10:19 Freq: Status: Active Protocol: Document 08/19/19 10:19 LP (Rec: 08/19/19 10:21 LP [id number]) Nutrition Notes Need for Assessment generated from: MD Order Initial or Follow up Brief Note Current Diagnosis Diabetes Other Pertinent Diagnosis DKA, UTI Current Diet Consistent CHO Labs/Tests Na 153 BUN 41 Cr 1.4 BG 563 A1c 12.4 Pertinent Medications Insulin drip KCL Height 5 ft 9 in Weight 124 kg [place] Body Weight (kg) 65.90 BMI 40.4 Subjective/Other Information Consult for diet education. Pt in ED. Nutrition Intervention Follow-Up By: 08/20/19 Additional Comments Follow for DM education
[2019-08-20] MEDS: INSULIN LISPRO 100 UNIT/ML SUB-Q SCH ×6 (08:42→21:48)
[2019-08-20] MEDS: FLUCONAZOLE 100 MG TAB PO SCH (09:47)
[2019-08-20] MEDS: FAMOTIDINE 20 MG/2 ML INJ IV SCH ×2 (09:48→21:46)
[2019-08-20] MEDS: cefTRIAXone/NS 1 GM/50 ML 1 GM/50 ML BAG IV SCH (09:48)
[2019-08-20] MEDS: INSULIN GLARGINE 100 UNITS/ML SUB-Q SCH ×2 (10:03→21:47)
[2019-08-20] MEDS ORDERED: FLU VACC QUAD 2019-20 (3 YR UP)/PF 60 MCG/0.5 ML SYRINGE IM ONE (12:00)
[2019-08-20] MEDS: oxyCODONE /ACETAMINOPHEN 5-325MG TAB PO PRN ×2 (12:50→21:46)
[2019-08-20] MEDS ORDERED: GLYCERIN ADULT 2 GRAM RECT SUPP PR PRN (13:03)
[2019-08-20] MEDS ORDERED: SENNOSIDES/DOCUSATE SODIUM 8.6/50 MG TAB PO PRN (13:03)
[2019-08-20] MEDS: POLYETHYLENE GLYCOL 3350 17 GM POWDER PO SCH (14:59)
[2019-08-20] MEDS: MICONAZOLE NITRATE 2% VG SCH (21:48)
[2019-08-21] MEDS: FLEET ENEMA PR PRN (04:00)
[2019-08-21 06:05] LABS: Basophils % (Auto) 0.3 % (0.0-1.8); Eosinophils # (Auto) 0.1 K/mm3 (0.0-0.4); Eosinophils % (Auto) 1.7 % (0.0-4.3); Hematocrit 43.5 % (30.3-42.9); Lymphocytes # (Auto) 1.9 K/mm3 (1.2-5.4); Lymphocytes % (Auto) 28.8 % (13.4-35.0); Mean Corpuscular HGB Conc 32 % (30-34); Mean Corpuscular Volume 89 fl (79-97); Monocytes # (Auto) 0.7 K/mm3 (0.0-0.8); Monocytes % (Auto) 11.2 % (0.0-7.3); Platelet Count 239 K/mm3 (140-440); Red Blood Count 4.86 M/mm3 (3.65-5.03)
[2019-08-21 06:29] LABS: Calcium 9.5 mg/dL (8.4-10.2)
[2019-08-21] MEDS: INSULIN LISPRO 100 UNIT/ML SUB-Q SCH ×2 (07:42→07:43)
[2019-08-21] MEDS: cefTRIAXone/NS 1 GM/50 ML 1 GM/50 ML BAG IV SCH (09:27)
[2019-08-21] MEDS: INSULIN GLARGINE 100 UNITS/ML SUB-Q SCH (09:28)
[2019-08-21] MEDS: FAMOTIDINE 20 MG/2 ML INJ IV SCH (09:28)
[2019-08-21] MEDS: POLYETHYLENE GLYCOL 3350 17 GM POWDER PO SCH (09:28)
[2019-08-21] MEDS: FLUCONAZOLE 100 MG TAB PO SCH (09:28)
[2019-08-21] MEDS ORDERED: DEXTROSE 50% IN WATER (25GM) 50 ML SYRINGE IV PRN (09:59)
--- NOTE | 2019-08-21 11:22 | Progress Note ---
Assessment and Plan Assessment and plan: 44-year-old -Mexican female presents to the emergency department with complaint of a 1 week history of nausea, vomiting and diarrhea and the patient says "I am dehydrated." Hyperosmolar hyperglycemic nonketotic state, newly diagnosed diabetes. Persistent hyperglycemia. Patient is now off insulin drip, continue to optimize insulins. On [id number] as she does not have insurance. A1c 12.4, diabetic teaching HHS in newly diagnosed DM Intractable N/V Resolved, Was most likely due to hyperglycemia CONCHIS due to dehydration, Due to vasomotor nephropathy Improving with IV fluids Hypernatremia due to dehydration -cont IVF, will monitor Na level E. coli UTI Sensitive to Rocephin, continue Rocephin Pseudohyponatremia due to hyperglycemia -resolved Hyperkalemia -resolved Morbid obesity with BMI of 40.4 -lifestyle modifications recommended DVT ppx: SCD Disp: Plan for discharge when glucose is improved. However patient is homeless, unable to go to [facility] as she is on insulin and needs to be refrigerated. Case management is discussing with the patient's sister and trying to find her a place. The patient states that she may go and stay with friends Hospitalist Physical - Constitutional Vitals: Temp Pulse Resp BP Pulse Ox 97.8 F 91 H 20 144/79 97 08/21/19 05:24 08/21/19 05:24 08/21/19 05:24 08/21/19 05:24 08/21/19 05:24 General appearance: Present: no acute distress, obese Results - Labs CBC & Chem 7: 08/21/19 05:11 08/21/19 05:11 Labs: Laboratory Last Values WBC 6.5 K/mm3 (4.5-11.0) 08/21/19 05:11 RBC 4.86 M/mm3 (3.65-5.03) 08/21/19 05:11 Hgb 14.0 gm/dl (10.1-14.3) 08/21/19 05:11 Hct 43.5 % (30.3-42.9) H 08/21/19 05:11 MCV 89 fl (79-97) 08/21/19 05:11 MCH 29 pg (28-32) 08/21/19 05:11 MCHC 32 % (30-34) 08/21/19 05:11 RDW 15.0 % (13.2-15.2) 08/21/19 05:11 Plt Count 239 K/mm3 (140-440) 08/21/19 05:11 Lymph % (Auto) 28.8 % (13.4-35.0) 08/21/19 05:11 [place] % (Auto) 11.2 % (0.0-7.3) H 08/21/19 05:11 Eos % (Auto) 1.7 % (0.0-4.3) 08/21/19 05:11 Baso % (Auto) 0.3 % (0.0-1.8) 08/21/19 05:11 Lymph # 1.9 K/mm3 (1.2-5.4) 08/21/19 05:11 [place] # 0.7 K/mm3 (0.0-0.8) 08/21/19 05:11 Eos # 0.1 K/mm3 (0.0-0.4) 08/21/19 05:11 Baso # 0.0 K/mm3 (0.0-0.1) 08/21/19 05:11 Seg Neutrophils % 58.0 % (40.0-70.0) 08/21/19 05:11 Seg Neutrophils # 3.8 K/mm3 (1.8-7.7) 08/21/19 05:11 VBG pH 7.302 (7.320-7.420) L 08/18/19 12:34 Sodium 154 mmol/L (137-145) H 08/21/19 05:11 Potassium 3.8 mmol/L (3.6-5.0) D 08/21/19 05:11 Chloride 112.4 mmol/L (98-107) H 08/21/19 05:11 Carbon Dioxide 21 mmol/L (22-30) L 08/21/19 05:11 Anion Gap 24 mmol/L 08/21/19 05:11 BUN 38 mg/dL (7-17) H 08/21/19 05:11 Creatinine 1.2 mg/dL (0.7-1.2) 08/21/19 05:11 Estimated GFR 59 ml/min 08/21/19 05:11 BUN/Creatinine Ratio 32 % 08/21/19 05:11 Glucose 524 mg/dL (65-100) H* 08/21/19 05:11 POC Glucose 398 (70-105) H 08/21/19 07:45 Hemoglobin A1c 12.4 % (4-6) H 08/18/19 17:26 Ketones Quantitative Moderate (Negative) 08/18/19 12:34 Calcium 9.5 mg/dL (8.4-10.2) 08/21/19 05:11 Phosphorus 3.70 mg/dL (2.5-4.5) 08/18/19 17:26 Magnesium 3.50 mg/dL (1.7-2.3) H 08/18/19 17:26 Total Bilirubin 0.30 mg/dL (0.1-1.2) 08/18/19 11:18 AST 19 units/L (5-40) 08/18/19 11:18 ALT 38 units/L (7-56) 08/18/19 11:18 Alkaline Phosphatase 121 units/L (35-129) 08/18/19 11:18 Total Protein 9.5 g/dL (6.3-8.2) H 08/18/19 11:18 Albumin 4.4 g/dL (3.9-5) 08/18/19 11:18 Albumin/Globulin Ratio 0.9 % 08/18/19 11:18 HCG, Qual Negative (Negative) 08/18/19 11:22 Urine Color Colorless (Yellow) 08/18/19 11:15 Urine Turbidity Clear (Clear) 08/18/19 11:15 Urine pH 6.0 (5.0-7.0) 08/18/19 11:15 Ur Specific [place] 1.026 (1.003-1.030) 08/18/19 11:15 Urine Protein <15 mg/dl mg/dL (Negative) 08/18/19 11:15 Urine Glucose (UA) >=500 mg/dL (Negative) 08/18/19 11:15 Urine Ketones 20 mg/dL (Negative) 08/18/19 11:15 Urine Blood Neg (Negative) 08/18/19 11:15 Urine Nitrite Neg (Negative) 08/18/19 11:15 Urine Bilirubin Neg (Negative) 08/18/19 11:15 Urine Urobilinogen < 2.0 mg/dL (<2.0) 08/18/19 11:15 Ur Leukocyte Esterase Tr (Negative) 08/18/19 11:15 Urine WBC (Auto) 11.0 /HPF (0.0-6.0) H 08/18/19 11:15 Urine RBC (Auto) 6.0 /HPF (0.0-6.0) 08/18/19 11:15 Urine Bacteria (Auto) 1+ /HPF (Negative) 08/18/19 11:15 Active Medications - Current Medications Current Medications: Generic Name Dose Route Start Last Admin Trade Name Freq PRN Reason Stop Dose Admin Acetaminophen 650 mg 08/18/19 16:34 Tylenol PO Q4H PRN Pain MILD(1-3)/Fever >100.5/PEDRO Dextrose 50 ml 08/21/19 09:59 D50w (25gm) Syringe IV Q30MIN PRN Hypoglycemia Protocol Famotidine 20 mg 08/21/19 22:00 Pepcid PO BID BIMAL Fluconazole 150 mg 08/19/19 18:00 08/21/19 09:28 Diflucan PO 08/22/19 23:59 150 mg QDAY BIMAL Administration Glycerin 1 supp 08/20/19 13:03 Glycerin Adult 2 Gm [place] QDAY PRN Constipation Hydromorphone HCl 0.5 mg 08/18/19 16:34 08/20/19 03:52 Dilaudid IV 0.5 mg Q3H PRN Administration Pain , Severe (7-10) Ceftriaxone Sodium 1 gm in 50 mls @ 100 mls/hr 08/19/19 10:00 08/21/19 09:27 Rocephin/Ns 1 Gm/50 Ml IV 100 mls/hr Q24HR BIMAL Administration Protocol Sodium Chloride 1,000 mls @ 125 mls/hr 08/21/19 10:00 Nacl 0.45% 1000 Ml IV DIRECT [facility] Insulin Human Isoph/Insulin Regular 60 unit 08/21/19 17:00 Humulin 70/30 SUB-Q BIDDIAB [facility] Insulin Human Regular 15 units 08/21/19 12:00 Humulin R SUB-Q DAILY@1200 [facility] Insulin Human Regular 0 units 08/21/19 11:30 Humulin R SUB-Q ACHS [facility] Protocol Metformin HCl 500 mg 08/21/19 12:00 Glucophage Xr PO QDDIAB [facility] Miconazole Nitrate 1 applicator 08/20/19 22:00 08/20/19 21:48 Monistat VG 08/26/19 22:01 1 applicator HS BIMAL Administration Ondansetron HCl 4 mg 08/18/19 16:34 08/19/19 23:38 Zofran IV 4 mg Q8H PRN Administration Nausea And Vomiting Oxycodone/Acetaminophen 1 tab 08/18/19 16:34 08/20/19 21:46 Percocet 5/325 PO 1 tab Q6H PRN Administration Pain, Moderate (4-6) Polyethylene Glycol 17 gm 08/20/19 14:00 08/21/19 09:28 Miralax 3350 PO 17 gm QDAY BIMAL Administration Senna/Docusate Sodium 2 tab 08/20/19 13:03 08/20/19 21:46 Senokot S PO 2 tab Q12H PRN Administration Laxative Effect Sodium Biphosphate/Sodium Phosphate 133 ml 08/20/19 13:03 08/21/19 04:00 Fleet [place] 133 ml QDAY PRN Administration Bowel Movement Sodium Chloride 10 ml 08/18/19 22:00 08/21/19 09:28 Sodium Chloride Flush Syringe 10 Ml IV 10 ml BID BIMAL Administration Sodium Chloride 10 ml 08/18/19 16:34 Sodium Chloride Flush Syringe 10 Ml IV PRN PRN LINE FLUSH Nutrition/Malnutrition Assess - Dietary Evaluation Nutrition/Malnutrition Findings: Nutrition Notes Start: 08/19/19 10:19 Freq: Status: Active Protocol: Document 08/20/19 10:57 LP (Rec: 08/20/19 11:03 LP [id number]) Nutrition Notes Need for Assessment generated from: Education Initial or Follow up Brief Note Subjective/Other Information Pt with new DM. Pt states drinking soda at home. #1 Nutrition Diagnosis Food and nutrition-related knowledge deficit Etiology DM diet education As Evidenced by Signs and Symptoms Pt with new DM, A1c 12.4 Nutrition Intervention Teaching Recipient Patient Learning Readiness Good Teaching Methods Discussion,Handout Response to Teaching Verbalize understanding Education Handouts Provided Consistent CHO diet Barriers to Learning No Barriers RD phone number provided Yes Patient aware of follow up options Yes Revisit per MD consult or patient Sign Off request:
[2019-08-21] MEDS ORDERED: INSULIN REGULAR, HUMAN 100 UNITS/1 ML SUB-Q SCH (12:00)
[2019-08-21] MEDS: metFORMIN XR 500MG TAB PO SCH (12:56)
[2019-08-21] MEDS: INSULIN REGULAR, HUMAN 100 UNITS/1 ML SUB-Q SCH ×3 (12:58→21:55)
[2019-08-21] MEDS: SODIUM CHLORIDE 0.45% 1000 ML 1,000 ML IV SCH ×2 (15:20→23:04)
--- NOTE | 2019-08-21 16:54 | XRay Report ---
ABDOMEN 1 VIEW(S) INDICATION / CLINICAL INFORMATION: abdominal pain. COMPARISON: None available. FINDINGS: TUBES / LINES: None. BOWEL GAS PATTERN: No significant abnormality. ADDITIONAL FINDINGS: No significant additional findings. IMPRESSION: 1. No significant abnormality. Signer Name: Ryan Alex MD Signed: 08/21/2019 4:50 PM Workstation Name: [id number]
[2019-08-21] MEDS: INSULIN NPH/REGULAR 70/30 INJ SUB-Q SCH (17:26)
[2019-08-21] MEDS: FAMOTIDINE 20 MG TAB PO SCH (21:55)
[2019-08-21] MEDS: MICONAZOLE NITRATE 2% VG SCH (22:02)
[2019-08-22] MEDS: FLEET ENEMA PR PRN (06:12)
[2019-08-22] MEDS: INSULIN REGULAR, HUMAN 100 UNITS/1 ML SUB-Q SCH ×7 (08:52→21:40)
[2019-08-22] MEDS: INSULIN NPH/REGULAR 70/30 INJ SUB-Q SCH ×2 (08:53→19:01)
[2019-08-22] MEDS: metFORMIN XR 500MG TAB PO SCH (08:53)
[2019-08-22] MEDS: SODIUM CHLORIDE 0.45% 1000 ML 1,000 ML IV SCH (09:04)
[2019-08-22] MEDS: FLUCONAZOLE 100 MG TAB PO SCH (09:06)
[2019-08-22] MEDS: FAMOTIDINE 20 MG TAB PO SCH ×2 (09:06→21:39)
[2019-08-22] MEDS: POLYETHYLENE GLYCOL 3350 17 GM POWDER PO SCH (09:07)
[2019-08-22 10:19] LABS: BUN/Creatinine Ratio 23; Blood Urea Nitrogen 18 mg/dL (7-17); Calcium 9.3 mg/dL (8.4-10.2); Hemolysis Index 38
--- NOTE | 2019-08-22 12:04 | Progress Note ---
Assessment and Plan Assessment and plan: HHS in newly diagnosed DM -off insulin drip -BG still uncontrolled -insulin regimen adjusted, monitor BG -hba1c: 12.4 -diabetic teaching before d/c Intractable N/V -resolved CONCHIS, probably vasomotor nephropathy due to dehydration -resolved Hypernatremia due to dehydration -level improving on IVF, will monitor Na level E. coli UTI -completed IV Rocephin Pseudohyponatremia due to hyperglycemia -resolved Hyperkalemia -resolved Morbid obesity with BMI of 40.4 -lifestyle modifications recommended DVT ppx: SCD Disp: for d/c when BG is well controlled and hypernatremia resolves History Interval history: Pt has no new complaints. She feels a lot better today. No abd pain, n/v. Hospitalist Physical - Constitutional Vitals: Temp Pulse Resp BP Pulse Ox 98.2 F 95 H 20 152/96 96 08/22/19 06:07 08/22/19 06:07 08/22/19 06:07 08/22/19 06:07 08/22/19 06:07 General appearance: Present: no acute distress, obese - EENT Eyes: Present: PERRL, EOM intact ENT: hearing intact, clear oral mucosa - Neck Neck: Present: supple, normal ROM - Respiratory Respiratory effort: normal Respiratory: bilateral: CTA - Cardiovascular Rhythm: regular Heart Sounds: Present: S1 & S2 - Extremities Extremities: No edema - Abdominal General gastrointestinal: soft, non-tender, normal bowel sounds - Integumentary Integumentary: Present: warm, dry - Psychiatric Psychiatric: appropriate mood/affect - Neurologic Neurologic: CNII-XII intact Results - Labs CBC & Chem 7: 08/21/19 05:11 08/22/19 09:16 Labs: Laboratory Last Values WBC 6.5 K/mm3 (4.5-11.0) 08/21/19 05:11 RBC 4.86 M/mm3 (3.65-5.03) 08/21/19 05:11 Hgb 14.0 gm/dl (10.1-14.3) 08/21/19 05:11 Hct 43.5 % (30.3-42.9) H 08/21/19 05:11 MCV 89 fl (79-97) 08/21/19 05:11 MCH 29 pg (28-32) 08/21/19 05:11 MCHC 32 % (30-34) 08/21/19 05:11 RDW 15.0 % (13.2-15.2) 08/21/19 05:11 Plt Count 239 K/mm3 (140-440) 08/21/19 05:11 Lymph % (Auto) 28.8 % (13.4-35.0) 08/21/19 05:11 [place] % (Auto) 11.2 % (0.0-7.3) H 08/21/19 05:11 Eos % (Auto) 1.7 % (0.0-4.3) 08/21/19 05:11 Baso % (Auto) 0.3 % (0.0-1.8) 08/21/19 05:11 Lymph # 1.9 K/mm3 (1.2-5.4) 08/21/19 05:11 [place] # 0.7 K/mm3 (0.0-0.8) 08/21/19 05:11 Eos # 0.1 K/mm3 (0.0-0.4) 08/21/19 05:11 Baso # 0.0 K/mm3 (0.0-0.1) 08/21/19 05:11 Seg Neutrophils % 58.0 % (40.0-70.0) 08/21/19 05:11 Seg Neutrophils # 3.8 K/mm3 (1.8-7.7) 08/21/19 05:11 VBG pH 7.302 (7.320-7.420) L 08/18/19 12:34 Sodium 151 mmol/L (137-145) H 08/22/19 09:16 Potassium 4.4 mmol/L (3.6-5.0) 08/22/19 09:16 Chloride 110.7 mmol/L (98-107) H 08/22/19 09:16 Carbon Dioxide 22 mmol/L (22-30) 08/22/19 09:16 Anion Gap 23 mmol/L 08/22/19 09:16 BUN 18 mg/dL (7-17) H 08/22/19 09:16 Creatinine 0.8 mg/dL (0.7-1.2) 08/22/19 09:16 Estimated GFR > 60 ml/min 08/22/19 09:16 BUN/Creatinine Ratio 23 % 08/22/19 09:16 Glucose 367 mg/dL (65-100) H 08/22/19 09:16 POC Glucose 321 (70-105) H 08/22/19 08:23 Hemoglobin A1c 12.4 % (4-6) H 08/18/19 17:26 Ketones Quantitative Moderate (Negative) 08/18/19 12:34 Calcium 9.3 mg/dL (8.4-10.2) 08/22/19 09:16 Phosphorus 3.70 mg/dL (2.5-4.5) 08/18/19 17:26 Magnesium 3.50 mg/dL (1.7-2.3) H 08/18/19 17:26 Total Bilirubin 0.30 mg/dL (0.1-1.2) 08/18/19 11:18 AST 19 units/L (5-40) 08/18/19 11:18 ALT 38 units/L (7-56) 08/18/19 11:18 Alkaline Phosphatase 121 units/L (35-129) 08/18/19 11:18 Total Protein 9.5 g/dL (6.3-8.2) H 08/18/19 11:18 Albumin 4.4 g/dL (3.9-5) 08/18/19 11:18 Albumin/Globulin Ratio 0.9 % 08/18/19 11:18 HCG, Qual Negative (Negative) 08/18/19 11:22 Urine Color Colorless (Yellow) 08/18/19 11:15 Urine Turbidity Clear (Clear) 08/18/19 11:15 Urine pH 6.0 (5.0-7.0) 08/18/19 11:15 Ur Specific [place] 1.026 (1.003-1.030) 08/18/19 11:15 Urine Protein <15 mg/dl mg/dL (Negative) 08/18/19 11:15 Urine Glucose (UA) >=500 mg/dL (Negative) 08/18/19 11:15 Urine Ketones 20 mg/dL (Negative) 08/18/19 11:15 Urine Blood Neg (Negative) 08/18/19 11:15 Urine Nitrite Neg (Negative) 08/18/19 11:15 Urine Bilirubin Neg (Negative) 08/18/19 11:15 Urine Urobilinogen < 2.0 mg/dL (<2.0) 08/18/19 11:15 Ur Leukocyte Esterase Tr (Negative) 08/18/19 11:15 Urine WBC (Auto) 11.0 /HPF (0.0-6.0) H 08/18/19 11:15 Urine RBC (Auto) 6.0 /HPF (0.0-6.0) 08/18/19 11:15 Urine Bacteria (Auto) 1+ /HPF (Negative) 08/18/19 11:15 Active Medications - Current Medications Current Medications: Generic Name Dose Route Start Last Admin Trade Name Freq PRN Reason Stop Dose Admin Acetaminophen 650 mg 08/18/19 16:34 Tylenol PO Q4H PRN Pain MILD(1-3)/Fever >100.5/PEDRO Dextrose 50 ml 08/21/19 09:59 D50w (25gm) Syringe IV Q30MIN PRN Hypoglycemia Protocol Famotidine 20 mg 08/21/19 22:00 08/22/19 09:06 Pepcid PO 20 mg BID BIMAL Administration Fluconazole 150 mg 08/19/19 18:00 08/22/19 09:06 Diflucan PO 08/22/19 23:59 150 mg QDAY BIMAL Administration Glycerin 1 supp 08/20/19 13:03 Glycerin Adult 2 Gm [place] QDAY PRN Constipation Hydromorphone HCl 0.5 mg 08/18/19 16:34 08/20/19 03:52 Dilaudid IV 0.5 mg Q3H PRN Administration Pain , Severe (7-10) Sodium Chloride 1,000 mls @ 125 mls/hr 08/21/19 10:00 08/22/19 09:04 Nacl 0.45% 1000 Ml IV 125 mls/hr DIRECT BIMAL Administration Insulin Human Isoph/Insulin Regular 60 unit 08/21/19 17:00 08/22/19 08:53 Humulin 70/30 SUB-Q 60 unit BIDDIAB BIMAL Administration Insulin Human Regular 0 units 08/21/19 11:30 08/22/19 08:52 Humulin R SUB-Q 8 units ACHS BIMAL Administration Protocol Insulin Human Regular 10 units 08/22/19 09:00 08/22/19 09:05 Humulin R SUB-Q 10 units TIDWM BIMAL Administration Metformin HCl 500 mg 08/21/19 12:00 08/22/19 08:53 Glucophage Xr PO 500 mg QDDIAB BIMAL Administration Miconazole Nitrate 1 applicator 08/20/19 22:00 08/21/19 22:02 Monistat VG 08/26/19 22:01 1 applicator HS BIMAL Administration Ondansetron HCl 4 mg 08/18/19 16:34 08/19/19 23:38 Zofran IV 4 mg Q8H PRN Administration Nausea And Vomiting Oxycodone/Acetaminophen 1 tab 08/18/19 16:34 08/20/19 21:46 Percocet 5/325 PO 1 tab Q6H PRN Administration Pain, Moderate (4-6) Polyethylene Glycol 17 gm 08/20/19 14:00 08/22/19 09:07 Miralax 3350 PO 17 gm QDAY BIMAL Administration Senna/Docusate Sodium 2 tab 08/20/19 13:03 08/20/19 21:46 Senokot S PO 2 tab Q12H PRN Administration Laxative Effect Sodium Biphosphate/Sodium Phosphate 133 ml 08/20/19 13:03 08/22/19 06:12 Fleet [place] 133 ml QDAY PRN Administration Bowel Movement Sodium Chloride 10 ml 08/18/19 22:00 08/22/19 09:07 Sodium Chloride Flush Syringe 10 Ml IV 10 ml BID BIMAL Administration Sodium Chloride 10 ml 08/18/19 16:34 Sodium Chloride Flush Syringe 10 Ml IV PRN PRN LINE FLUSH Nutrition/Malnutrition Assess - Dietary Evaluation Nutrition/Malnutrition Findings: Nutrition Notes Start: 08/19/19 10:19 Freq: Status: Active Protocol: Document 08/20/19 10:57 LP (Rec: 08/20/19 11:03 LP [email or web address]) Nutrition Notes Need for Assessment generated from: Education Initial or Follow up Brief Note Subjective/Other Information Pt with new DM. Pt states drinking soda at home. #1 Nutrition Diagnosis Food and nutrition-related knowledge deficit Etiology DM diet education As Evidenced by Signs and Symptoms Pt with new DM, A1c 12.4 Nutrition Intervention Teaching Recipient Patient Learning Readiness Good Teaching Methods Discussion,Handout Response to Teaching Verbalize understanding Education Handouts Provided Consistent CHO diet Barriers to Learning No Barriers RD phone number provided Yes Patient aware of follow up options Yes Revisit per MD consult or patient Sign Off request:
[2019-08-22] MEDS: MICONAZOLE NITRATE 2% VG SCH (21:42)
[2019-08-23] MEDS: ONDANSETRON 4 MG/2 ML INJ IV PRN (03:06)
[2019-08-23] MEDS: SODIUM CHLORIDE 0.45% 1000 ML 1,000 ML IV SCH (03:54)
[2019-08-23 08:30] LABS: BUN/Creatinine Ratio 14; Blood Urea Nitrogen 11 mg/dL (7-17); Calcium 8.7 mg/dL (8.4-10.2); Hemolysis Index 7
[2019-08-23] MEDS: INSULIN REGULAR, HUMAN 100 UNITS/1 ML SUB-Q SCH ×6 (08:32→17:00)
[2019-08-23] MEDS: metFORMIN XR 500MG TAB PO SCH (08:32)
[2019-08-23] MEDS: INSULIN NPH/REGULAR 70/30 INJ SUB-Q SCH (08:33)
[2019-08-23] MEDS: POLYETHYLENE GLYCOL 3350 17 GM POWDER PO SCH (09:15)
[2019-08-23] MEDS: FAMOTIDINE 20 MG TAB PO SCH (09:15)
[2019-08-23 12:15] VITALS: BP 141/82
--- NOTE | 2019-08-23 13:43 | Discharge Summary ---
Providers - Providers Date of Admission: 08/18/19 13:02 Date of discharge: 08/23/19 Attending physician: GRACE MOLINA 08/18/19 16:38 Consult to Dietitian/Nutrition [CONS] Routine Physician Instructions: diet instructions Reason For Exam: new onset diabetes Reason for Consult: Diet education 08/18/19 16:39 Consult to Dietitian/Nutrition [CONS] Routine Physician Instructions: Reason For Exam: DKA Reason for Consult: Nutrition Recommendations Reason for Consult: Diet education 08/18/19 22:59 Consult to Dietitian/Nutrition [CONS] Routine Physician Instructions: Reason For Exam: hyperosmolar nonketotic state in diabetes Reason for Consult: Nutrition Recommendations Reason for Consult: Diet education 08/19/19 09:12 Consult to Dietitian/Nutrition [CONS] Routine Physician Instructions: Reason For Exam: Reason for Consult: Diet education Primary care physician: PUTTER IN Hospitalization Condition: Serious Hospital course: HHS in newly diagnosed DM -off insulin drip -BG still uncontrolled -insulin regimen adjusted, monitor BG -hba1c: 12.4 -diabetic teaching done by. Intractable N/V -resolved CONCHIS, probably vasomotor nephropathy due to dehydration -resolved Hypernatremia due to dehydration Improved E. coli UTI -completed IV Rocephin Pseudohyponatremia due to hyperglycemia -resolved Hyperkalemia -resolved Morbid obesity with BMI of 40.4 -lifestyle modifications recommended Disposition: DC-01 TO HOME OR SELFCARE - Discharge Diagnoses (1) Hyperosmolar non-ketotic state in patient with type 2 diabetes mellitus Status: Acute (2) Hyponatremia Status: Acute (3) Metabolic acidosis Status: Acute (4) Urinary tract infection Status: Acute Qualifiers: Urinary tract infection type: acute cystitis (5) DVT prophylaxis Status: Acute Core Measure Documentation - Palliative Care Palliative Care/ Comfort Measures: Not Applicable - Core Measures Any of the following diagnoses?: none Exam - Constitutional Vitals: Temp Pulse Resp BP Pulse Ox 98.6 F 92 H 20 141/82 95 08/23/19 11:25 08/23/19 11:25 08/23/19 11:25 08/23/19 11:25 08/23/19 11:25 General appearance: Present: no acute distress, well-nourished - EENT Eyes: Present: PERRL ENT: hearing intact, clear oral mucosa - Neck Neck: Present: supple, normal ROM - Respiratory Respiratory effort: normal Respiratory: bilateral: CTA - Cardiovascular Heart rate: 78 Rhythm: regular Heart Sounds: Present: S1 & S2. Absent: rub, click - Extremities Extremities: no ischemia, pulses intact, pulses symmetrical, No edema Peripheral Pulses: within normal limits - Abdominal General gastrointestinal: Present: soft, non-tender, non-distended, normal bowel sounds Female genitourinary: Present: normal - Rectal Rectal Exam: deferred - Integumentary Integumentary: Present: clear, warm, dry - Musculoskeletal Musculoskeletal: gait normal, strength equal bilaterally - Psychiatric Psychiatric: appropriate mood/affect, intact judgment & insight - Neurologic Neurologic: CNII-XII intact, moves all extremities - Allied Health Allied health notes reviewed: nursing, case management Plan Activity: no restrictions Diet: diabetic Follow up with: PRIMARY CAREMD [Primary Care Provider] - 7 Days VIDHYA KURTZ MD [Staff Physician] - 7 Days
[2019-08-23] MEDS ORDERED: SODIUM CHLORIDE 0.45% 500 ML IV SCH (14:00)
[2019-08-23 15:42] LABS: BUN/Creatinine Ratio 14; Blood Urea Nitrogen 11 mg/dL (7-17); Calcium 8.9 mg/dL (8.4-10.2); Hemolysis Index 173
[2019-08-23] MEDS ORDERED: INSULIN NPH/REGULAR 70/30 INJ SUB-Q SCH (17:00)
== END 2019-08-23 19:01 | disposition home or self-care (01) | DRG 637 ==
LOC: ED 10:53 → CC1 13:02 → 3A 08-19 13:16
PROVIDERS: ADMIT Internal Medicine; ATTEND Internal Medicine
DX: E11.00 Type 2 diabetes mellitus with hyperosmolarity without nonketotic hyperglycemic-hyperosmolar coma (NKHHC) (principal); N17.0 Acute kidney failure with tubular necrosis; E87.1 Hypo-osmolality and hyponatremia; Z68.41 Body mass index [BMI] 40.0-44.9, adult; N30.00 Acute cystitis without hematuria; E86.0 Dehydration; B96.20 Unspecified Escherichia coli [E. coli] as the cause of diseases classified elsewhere; E87.5 Hyperkalemia; F17.210 Nicotine dependence, cigarettes, uncomplicated; E66.01 Morbid (severe) obesity due to excess calories; B37.3 Candidiasis of vulva and vagina; Z71.3 Dietary counseling and surveillance; Z79.899 Other long term (current) drug therapy; Z79.4 Long term (current) use of insulin; Z82.49 Family history of ischemic heart disease and other diseases of the circulatory system; Z71.6 Tobacco abuse counseling
CPT/HCPCS: 36415; 71045; 74018; 80048; 80053; 81001; 82010; 82805; 82962; 83036; 83735; 84100; 84703; 85025; 87076; 87086; 87116; 87186; 90686; 93005; 93010; 96372; 96374; 96375; 99406; G0378; J0696; J1170; J1815; J2405; J7030

== ENCOUNTER 2019-12-13 05:03 | Emergency (ER) | payer SELFPAY ==
--- NOTE | 2019-12-13 06:00 | XRay Report ---
CHEST 1 VIEW INDICATION / CLINICAL INFORMATION: Chest Pain. COMPARISON: 08/18/2019 FINDINGS: SUPPORT DEVICES: None. HEART / MEDIASTINUM: No significant abnormality. LUNGS / PLEURA: Minimal subsegmental atelectasis in the right lung base No pneumothorax. ADDITIONAL FINDINGS: No significant additional findings. IMPRESSION: Minimal subsegmental atelectasis in the right lung base Signer Name: Earnest Connor MD FACJhony Signed: 12/13/2019 5:55 AM Workstation Name: [employer]
[2019-12-13 06:13] LABS: Basophils % (Auto) 0.4 % (0.0-1.8); Eosinophils # (Auto) 0.1 K/mm3 (0.0-0.4); Eosinophils % (Auto) 1.3 % (0.0-4.3); Hematocrit 44.1 % (30.3-42.9); Hemoglobin 14.3 gm/dl (10.1-14.3); Lymphocytes # (Auto) 2.2 K/mm3 (1.2-5.4); Mean Corpuscular HGB Conc 33 % (30-34); Mean Corpuscular Volume 87 fl (79-97); Monocytes # (Auto) 0.5 K/mm3 (0.0-0.8); Monocytes % (Auto) 9.1 % (0.0-7.3); Platelet Count 287 K/mm3 (140-440); Red Blood Count 5.07 M/mm3 (3.65-5.03); Red Cell Distribution Width 15.3 % (13.2-15.2)
[2019-12-13 06:25] LABS: BUN/Creatinine Ratio 10; Blood Urea Nitrogen 5 mg/dL (7-17); Hemolysis Index 27
--- NOTE | 2019-12-13 09:01 | Emergency Department Report ---
ED General Adult HPI - General Chief complaint: Dyspnea/Respdistress Stated complaint: SOB,BLOOD PRESSURE,COUGH Time Seen by Provider: 12/13/19 08:15 Source: patient Mode of arrival: Ambulatory Limitations: No Limitations - History of Present Illness Initial comments: Ms. Russell is a 44-year-old female recently diagnosed with diabetes and is taking metformin insulin for maintenance. She presents today with intermittent coughing that is been going on for some days. Patient states that coughing has been dry in nature also causing some right to left generalized chest pain. Patient states that today as she was walking to the ER she felt a little short of breath after exertion. Patient states that she has been coughing for a while and stayed home from work because she was not sure if she had any upper respiratory infection and did not want to be at work to either transiently or get sicker. Patient states she has been taking her metformin twice a day. Patient states that she does feel a lot better chest pain is only worsened with palpation. She denies any heavy lifting, trauma, injuries to the chest. She denies fever/chills/nausea vomiting/abdominal pain dizziness or any other symptoms Severity scale (0 -10): 10 - Related Data Previous Rx's Medication Instructions Recorded Last Taken Type Famotidine [Pepcid] 20 mg PO BID #60 tablet 08/23/19 Unknown Rx Fluconazole [Diflucan TAB] 100 mg PO QDAY #4 tablet 08/23/19 Unknown Rx Benzonatate [Tessalon Perles] 100 mg PO Q8HR #30 capsule 12/13/19 Unknown Rx Insulin NPH/Regular [NovoLIN 70/30] 75 unit SUB-Q BIDDIAB #5 vial 12/13/19 Unknown Rx metFORMIN XR [Glucophage XR] 500 mg PO QDDIAB #30 tablet 12/13/19 Unknown Rx Allergies Allergy/AdvReac Type Severity Reaction Status Date / Time No Known Allergies Allergy Unverified 08/18/19 10:54 ED Review of Systems ROS: Stated complaint: SOB,BLOOD PRESSURE,COUGH Other details as noted in HPI Comment: All other systems reviewed and negative ED Past Medical Hx - Past Medical History Previous Medical History?: Yes Hx Congestive Heart Failure: No Hx Diabetes: Yes (new onset) Hx Asthma: Yes Hx COPD: No Hx HIV: No - Surgical History Past Surgical History?: No - Social History Smoking Status: Current Every Day Smoker - Medications Home Medications: Home Medications Medication Instructions Recorded Confirmed Last Taken Type Famotidine [Pepcid] 20 mg PO BID #60 tablet 08/23/19 Unknown Rx Fluconazole [Diflucan TAB] 100 mg PO QDAY #4 tablet 08/23/19 Unknown Rx Benzonatate [Tessalon Perles] 100 mg PO Q8HR #30 capsule 12/13/19 Unknown Rx Insulin NPH/Regular [NovoLIN 70/30] 75 unit SUB-Q BIDDIAB #5 vial 12/13/19 Unknown Rx metFORMIN XR [Glucophage XR] 500 mg PO QDDIAB #30 tablet 12/13/19 Unknown Rx ED Physical Exam - General Limitations: No Limitations General appearance: alert, in no apparent distress - Head Head exam: Present: atraumatic, normocephalic - Eye Eye exam: Present: normal appearance - ENT ENT exam: Present: mucous membranes moist - Neck Neck exam: Present: normal inspection - Respiratory Respiratory exam: Present: normal lung sounds bilaterally, chest wall tenderness. Absent: respiratory distress, wheezes, rales, accessory muscle use - Cardiovascular Cardiovascular Exam: Present: regular rate, normal rhythm. Absent: systolic murmur, diastolic murmur, rubs, gallop - GI/Abdominal GI/Abdominal exam: Present: soft, normal bowel sounds. Absent: distended, tenderness, guarding - Extremities Exam Extremities exam: Present: normal inspection, full ROM - Back Exam Back exam: Present: normal inspection - Neurological Exam Neurological exam: Present: alert, oriented X3, normal gait - Psychiatric Psychiatric exam: Present: normal affect, normal mood - Skin Skin exam: Present: warm, dry, intact, normal color. Absent: rash ED Course Vital Signs 12/13/19 12/13/19 05:11 08:26 Temperature 97.6 F 97.6 F Pulse Rate 80 72 Respiratory 18 15 Rate Blood Pressure 191/104 Blood Pressure 179/97 [Left] O2 Sat by Pulse 100 99 Oximetry ED Medical Decision Making - Lab Data Result diagrams: 12/13/19 05:47 12/13/19 05:47 Laboratory Last Values WBC 5.6 K/mm3 (4.5-11.0) 12/13/19 05:47 RBC 5.07 M/mm3 (3.65-5.03) H 12/13/19 05:47 Hgb 14.3 gm/dl (10.1-14.3) 12/13/19 05:47 Hct 44.1 % (30.3-42.9) H 12/13/19 05:47 MCV 87 fl (79-97) 12/13/19 05:47 MCH 28 pg (28-32) 12/13/19 05:47 MCHC 33 % (30-34) 12/13/19 05:47 RDW 15.3 % (13.2-15.2) H 12/13/19 05:47 Plt Count 287 K/mm3 (140-440) 12/13/19 05:47 Lymph % (Auto) 39.0 % (13.4-35.0) H 12/13/19 05:47 [place] % (Auto) 9.1 % (0.0-7.3) H 12/13/19 05:47 Eos % (Auto) 1.3 % (0.0-4.3) 12/13/19 05:47 Baso % (Auto) 0.4 % (0.0-1.8) 12/13/19 05:47 Lymph # 2.2 K/mm3 (1.2-5.4) 12/13/19 05:47 [place] # 0.5 K/mm3 (0.0-0.8) 12/13/19 05:47 Eos # 0.1 K/mm3 (0.0-0.4) 12/13/19 05:47 Baso # 0.0 K/mm3 (0.0-0.1) 12/13/19 05:47 Seg Neutrophils % 50.2 % (40.0-70.0) 12/13/19 05:47 Seg Neutrophils # 2.8 K/mm3 (1.8-7.7) 12/13/19 05:47 Sodium 138 mmol/L (137-145) 12/13/19 05:47 Potassium 3.1 mmol/L (3.6-5.0) L 12/13/19 05:47 Chloride 99.8 mmol/L (98-107) 12/13/19 05:47 Carbon Dioxide 25 mmol/L (22-30) 12/13/19 05:47 Anion Gap 16 mmol/L 12/13/19 05:47 BUN 5 mg/dL (7-17) L 12/13/19 05:47 Creatinine 0.5 mg/dL (0.7-1.2) L 12/13/19 05:47 Estimated GFR > 60 ml/min 12/13/19 05:47 BUN/Creatinine Ratio 10 % 12/13/19 05:47 Glucose 122 mg/dL (65-100) H 12/13/19 05:47 Calcium 9.0 mg/dL (8.4-10.2) 12/13/19 05:47 Troponin T < 0.010 ng/mL (0.00-0.029) 12/13/19 05:47 - EKG Data EKG shows normal: sinus rhythm Rate: normal - EKG Data When compared to previous EKG there are: no significant change Interpretation: no acute changes, normal EKG - Radiology Data Radiology results: report reviewed, image reviewed XRay Report Signed Patient: OLIMPIA RUSSELL MR #: [id number] : 1975 Acct:[id number] CHEST 1 VIEW INDICATION / CLINICAL INFORMATION: Chest Pain. COMPARISON: 08/18/2019 FINDINGS: SUPPORT DEVICES: None. HEART / MEDIASTINUM: No significant abnormality. LUNGS / PLEURA: Minimal subsegmental atelectasis in the right lung base No pneumothorax. ADDITIONAL FINDINGS: No significant additional findings. IMPRESSION: Minimal subsegmental atelectasis in the right lung base Signer Name: Earnest Connor MD FACR Signed: 12/13/2019 5:55 AM Workstation Name: [id number] Transcribed By: MS Dictated By: Earnest Connor MD Electronically Authenticated By: Earnest Connor MD Signed Date/Time: 12/13/19 0555 - Medical Decision Making 44-year-old female presents with intermittent coughing/chest wall pain. All labs are within normal limits troponin negative x2. Chest x-ray was within normal limits no acute findings. See report above. I did discuss the atelectasis with the patient. I discussed with patient that this does resolve. Patient will be sent home on cough suppressants and follow-up with primary care physician. Referrals given. Vital signs are normal patient is in no acute or respiratory distress. I did discuss with patient if she has any worsening symptoms to return to ED immediately. Critical care attestation.: If time is entered above; I have spent that time in minutes in the direct care of this critically ill patient, excluding procedure time. ED Disposition Clinical Impression: Hypokalemia, Bronchitis, Chest wall pain, Diabetic neuropathy Disposition: DC-01 TO HOME OR SELFCARE Is pt being admited?: No Does the pt Need Aspirin: No Condition: Stable Instructions: Chronic Bronchitis (ED), Chest Pain (ED), Diabetes Mellitus Type 2 in Adults (ED), Costochondritis (ED) Additional Instructions: Make sure to follow up with the primary care physician as discussed. Take all your medications as you've been prescribed. Ensure that you are eating foods rich in potassium such as banana, kale and vegetables daily If you have any worsening symptoms or develop new symptoms please return to ED immediately. Prescriptions: metFORMIN XR [Glucophage XR] 500 mg PO QDDIAB #30 tablet Insulin NPH/Regular [NovoLIN 70/30] 75 unit SUB-Q BIDDIAB #5 vial Benzonatate [Tessalon Perles] 100 mg PO Q8HR #30 capsule Referrals: PRIMARY CARE, [Primary Care Provider] - 3-5 Days [facility] [Outside] - 3-5 Days [facility] [Outside] - 3-5 Days [facility] [Outside] - 3-5 Days Forms: Accompanied Note, Work/School Release Form(ED) Time of Disposition: 09:11
[2019-12-13] MEDS ORDERED: ACETAMINOPEN W/CODEINE 120-12MG ORAL LIQD 5 ML PO ONE (09:02)
[2019-12-13] MEDS ORDERED: predniSONE 20 MG TAB PO ONE (09:02)
[2019-12-13 09:52] VITALS: BP 185/103
== END 2019-12-13 10:04 | disposition home or self-care (01) ==
LOC: ED 05:03
DX: E87.6 Hypokalemia (principal); J40 Bronchitis, not specified as acute or chronic; R07.9 Chest pain, unspecified; E11.610 Type 2 diabetes mellitus with diabetic neuropathic arthropathy; F17.200 Nicotine dependence, unspecified, uncomplicated; Z79.899 Other long term (current) drug therapy
CPT/HCPCS: 36415; 71045; 80048; 84484; 85025; 93005; 93010; 99284; J7512

== ENCOUNTER 2020-07-03 21:06 | Emergency (ER) | payer SELFPAY ==
[2020-07-03 23:16] LABS: Basophils % (Auto) 0.4 % (0.0-1.8); Eosinophils # (Auto) 0.1 K/mm3 (0.0-0.4); Eosinophils % (Auto) 0.9 % (0.0-4.3); Hematocrit 36.3 % (30.3-42.9); Lymphocytes # (Auto) 2.4 K/mm3 (1.2-5.4); Lymphocytes % (Auto) 41.7 % (13.4-35.0); Mean Corpuscular HGB Conc 33 % (30-34); Mean Corpuscular Volume 87 fl (79-97); Monocytes # (Auto) 0.4 K/mm3 (0.0-0.8); Monocytes % (Auto) 7.9 % (0.0-7.3); Platelet Count 190 K/mm3 (140-440); Red Blood Count 4.16 M/mm3 (3.65-5.03); Red Cell Distribution Width 15.1 % (13.2-15.2)
[2020-07-03 23:23] LABS: BUN/Creatinine Ratio 19; Blood Urea Nitrogen 13 mg/dL (7-17); Calcium 9.1 mg/dL (8.4-10.2); Hemolysis Index 16
--- NOTE | 2020-07-03 23:43 | XRay Report ---
CHEST 1 VIEW INDICATION / CLINICAL INFORMATION: Chest Pain. COMPARISON: 12/13/2019 FINDINGS: SUPPORT DEVICES: None. HEART / MEDIASTINUM: No significant abnormality. LUNGS / PLEURA: There is linear atelectasis or scar in the right lung base. There are low lung volume s bilaterally no focal infiltrate is seen.. No pneumothorax. ADDITIONAL FINDINGS: No significant additional findings. IMPRESSION: 1. There is linear scar or atelectasis in the right lung base. There are low lung volumes. Signer Name: Jaden Rhoades MD Signed: 07/03/2020 11:39 PM Workstation Name: [id number]
[2020-07-04] MEDS ORDERED: SODIUM CHLORIDE 0.9% 1000 ML 1,000 ML IV ONE ×3 (00:01→03:23)
--- NOTE | 2020-07-04 00:02 | Emergency Department Report ---
ED General Adult HPI - General Chief complaint: Hyperglycemia Stated complaint: ELEVATED BLOOD GLUCOSE Time Seen by Provider: 07/03/20 23:39 Source: patient Mode of arrival: Ambulatory Limitations: No Limitations - History of Present Illness Initial comments: 45-year-old female the past medical history of obesity, asthma, and type 2 diabetes presents to the hospital complaining of hyperglycemia and chest pain. Patient does not have a primary care doctor. She was seen at another ER approximately 2 months ago and her insulin was discontinued and she was placed on Metformin 1000 mg twice daily. For last 2 weeks patient's glucose has been persistently in the five hundreds. She has been experiencing polyuria, increased thirst, and having tingling sensation to lower extremities with chronic pedal edema. Patient states her glucose was adequately managed with a combination of insulin sliding scale dosing as well as Metformin. She does not have a primary care doctor to manage her glucose. She does smoke cigarettes. She denies a history of hypertension but states her blood pressure is elevated on occasion. She complains of intermittent chest pain for the past 10 days. Pain is described as sharp and moves varies between the left and right side of the chest. No associated shortness of breath, nausea, vomiting, or diaphoresis however she does feels some mild shortness of breath when climbing a hill but this does not induce chest pain. No unilateral calf tenderness reported or hx of PE/DVT. - Related Data Previous Rx's Medication Instructions Recorded Last Taken Type Famotidine [Pepcid] 20 mg PO BID #60 tablet 08/23/19 Unknown Rx Fluconazole [Diflucan TAB] 100 mg PO QDAY #4 tablet 08/23/19 Unknown Rx Benzonatate [Tessalon Perles] 100 mg PO Q8HR #30 capsule 12/13/19 Unknown Rx Insulin NPH/Regular [NovoLIN 70/30] 75 unit SUB-Q BIDDIAB #5 vial 12/13/19 Unknown Rx metFORMIN XR [Glucophage XR] 500 mg PO QDDIAB #30 tablet 12/13/19 Unknown Rx Ibuprofen [Motrin] 800 mg PO Q8HR PRN #15 tablet 07/04/20 Unknown Rx Insulin Regular,Human U-500(Nf See Protocol SQ TIDAC #20 ml 07/04/20 Unknown Rx [HumuLIN R] Nitrofurantoin Nicholas/M-Cryst 100 mg PO Q12HR #10 capsule 07/04/20 Unknown Rx [Macrobid CAP] Potassium Chloride [K-Dur] 20 meq PO BID #4 tab 07/04/20 Unknown Rx Allergies Allergy/AdvReac Type Severity Reaction Status Date / Time No Known Allergies Allergy Unverified 08/18/19 10:54 ED Review of Systems ROS: Stated complaint: ELEVATED BLOOD GLUCOSE Other details as noted in HPI Comment: All other systems reviewed and negative ED Past Medical Hx - Past Medical History Previous Medical History?: Yes Hx Congestive Heart Failure: No Hx Diabetes: Yes (type 2) Hx Asthma: Yes Hx COPD: No Hx HIV: No - Surgical History Past Surgical History?: Yes Additional Surgical History: Tubal - Social History Smoking Status: Current Every Day Smoker Substance Use Type: None - Medications Home Medications: Home Medications Medication Instructions Recorded Confirmed Last Taken Type Famotidine [Pepcid] 20 mg PO BID #60 tablet 08/23/19 Unknown Rx Fluconazole [Diflucan TAB] 100 mg PO QDAY #4 tablet 08/23/19 Unknown Rx Benzonatate [Tessalon Perles] 100 mg PO Q8HR #30 capsule 12/13/19 Unknown Rx Insulin NPH/Regular [NovoLIN 70/30] 75 unit SUB-Q BIDDIAB #5 vial 12/13/19 Unknown Rx metFORMIN XR [Glucophage XR] 500 mg PO QDDIAB #30 tablet 12/13/19 Unknown Rx Ibuprofen [Motrin] 800 mg PO Q8HR PRN #15 tablet 07/04/20 Unknown Rx Insulin Regular,Human U-500(Nf See Protocol SQ TIDAC #20 ml 07/04/20 Unknown Rx [HumuLIN R] Nitrofurantoin Nicholas/M-Cryst 100 mg PO Q12HR #10 capsule 07/04/20 Unknown Rx [Macrobid CAP] Potassium Chloride [K-Dur] 20 meq PO BID #4 tab 07/04/20 Unknown Rx ED Physical Exam - General Limitations: No Limitations - Other Other exam information: General: No acute distress Head: Atraumatic Eyes: normal appearance ENT: Moist mucous membranes Neck: Normal appearance, no midline tenderness Chest: Clear to auscultation bilaterally CV: Regular rate and rhythm Abdomen: Soft, normal bowel sounds, nontender, nondistended, no rebound or guarding Back: Normal inspection Extremity: Bilateral pedal edema, full range of motion Neuro: Alert O x 3, no facial asymmetry, speech clear, no gross motor sensory deficit Psych: Appropriate behavior Skin: No rash ED Course Vital Signs 07/03/20 07/04/20 21:55 04:49 Temperature 99.5 F Pulse Rate 90 71 Respiratory 20 16 Rate Blood Pressure 189/95 Blood Pressure 167/92 [left arm] O2 Sat by Pulse 95 99 Oximetry ED Medical Decision Making - Lab Data Result diagrams: 07/03/20 22:28 07/04/20 04:56 Lab Results 07/03/20 07/03/20 07/03/20 Range/Units 22:13 22:28 22:28 WBC 5.7 (4.5-11.0) K/mm3 RBC 4.16 (3.65-5.03) M/mm3 Hgb 12.0 (10.1-14.3) gm/dl Hct 36.3 (30.3-42.9) % MCV 87 (79-97) fl MCH 29 (28-32) pg MCHC 33 (30-34) % RDW 15.1 (13.2-15.2) % Plt Count 190 (140-440) K/mm3 Lymph % (Auto) 41.7 H (13.4-35.0) % Nicholas % (Auto) 7.9 H (0.0-7.3) % Eos % (Auto) 0.9 (0.0-4.3) % Baso % (Auto) 0.4 (0.0-1.8) % Lymph # (Auto) 2.4 (1.2-5.4) K/mm3 Nicholas # (Auto) 0.4 (0.0-0.8) K/mm3 Eos # (Auto) 0.1 (0.0-0.4) K/mm3 Baso # (Auto) 0.0 (0.0-0.1) K/mm3 Seg Neutrophils % 49.1 (40.0-70.0) % Seg Neutrophils # 2.8 (1.8-7.7) K/mm3 Sodium 133 L (137-145) mmol/L Potassium 3.7 (3.6-5.0) mmol/L Chloride 94.5 L (98-107) mmol/L Carbon Dioxide 20 L (22-30) mmol/L Anion Gap 22 mmol/L BUN 13 (7-17) mg/dL Creatinine 0.7 (0.6-1.2) mg/dL Estimated GFR > 60 ml/min BUN/Creatinine Ratio 19 % Glucose 445 H (65-100) mg/dL POC Glucose 425 H (70-105) mg/dL Calcium 9.1 (8.4-10.2) mg/dL Troponin T < 0.010 (0.00-0.029) ng/mL HCG, Qual (Negative) Urine Color (Yellow) Urine Turbidity (Clear) Urine pH (5.0-7.0) Ur Specific [place] (1.003-1.030) Urine Protein (Negative) mg/dL Urine Glucose (UA) (Negative) mg/dL Urine Ketones (Negative) mg/dL Urine Blood (Negative) Urine Nitrite (Negative) Urine Bilirubin (Negative) Urine Urobilinogen (<2.0) mg/dL Ur Leukocyte Esterase (Negative) Urine WBC (Auto) (0.0-6.0) /HPF Urine RBC (Auto) (0.0-6.0) /HPF U Epithel Cells (Auto) (0-13.0) /HPF 07/03/20 07/04/20 07/04/20 Range/Units 22:28 00:31 00:37 WBC (4.5-11.0) K/mm3 RBC (3.65-5.03) M/mm3 Hgb (10.1-14.3) gm/dl Hct (30.3-42.9) % MCV (79-97) fl MCH (28-32) pg MCHC (30-34) % RDW (13.2-15.2) % Plt Count (140-440) K/mm3 Lymph % (Auto) (13.4-35.0) % Nicholas % (Auto) (0.0-7.3) % Eos % (Auto) (0.0-4.3) % Baso % (Auto) (0.0-1.8) % Lymph # (Auto) (1.2-5.4) K/mm3 Nicholas # (Auto) (0.0-0.8) K/mm3 Eos # (Auto) (0.0-0.4) K/mm3 Baso # (Auto) (0.0-0.1) K/mm3 Seg Neutrophils % (40.0-70.0) % Seg Neutrophils # (1.8-7.7) K/mm3 Sodium (137-145) mmol/L Potassium (3.6-5.0) mmol/L Chloride (98-107) mmol/L Carbon Dioxide (22-30) mmol/L Anion Gap mmol/L BUN (7-17) mg/dL Creatinine (0.6-1.2) mg/dL Estimated GFR ml/min BUN/Creatinine Ratio % Glucose (65-100) mg/dL POC Glucose 362 H (70-105) mg/dL Calcium (8.4-10.2) mg/dL Troponin T (0.00-0.029) ng/mL HCG, Qual Negative (Negative) Urine Color Straw (Yellow) Urine Turbidity Clear (Clear) Urine pH 5.0 (5.0-7.0) Ur Specific [place] 1.018 (1.003-1.030) Urine Protein <15 mg/dl (Negative) mg/dL Urine Glucose (UA) >=500 (Negative) mg/dL Urine Ketones Tr (Negative) mg/dL Urine Blood Neg (Negative) Urine Nitrite Neg (Negative) Urine Bilirubin Neg (Negative) Urine Urobilinogen < 2.0 (<2.0) mg/dL Ur Leukocyte Esterase Sm (Negative) Urine WBC (Auto) 11.0 H (0.0-6.0) /HPF Urine RBC (Auto) 2.0 (0.0-6.0) /HPF U Epithel Cells (Auto) 3.0 (0-13.0) /HPF 07/04/20 07/04/20 07/04/20 Range/Units 00:54 01:50 03:37 WBC (4.5-11.0) K/mm3 RBC (3.65-5.03) M/mm3 Hgb (10.1-14.3) gm/dl Hct (30.3-42.9) % MCV (79-97) fl MCH (28-32) pg MCHC (30-34) % RDW (13.2-15.2) % Plt Count (140-440) K/mm3 Lymph % (Auto) (13.4-35.0) % Nicholas % (Auto) (0.0-7.3) % Eos % (Auto) (0.0-4.3) % Baso % (Auto) (0.0-1.8) % Lymph # (Auto) (1.2-5.4) K/mm3 Nicholas # (Auto) (0.0-0.8) K/mm3 Eos # (Auto) (0.0-0.4) K/mm3 Baso # (Auto) (0.0-0.1) K/mm3 Seg Neutrophils % (40.0-70.0) % Seg Neutrophils # (1.8-7.7) K/mm3 Sodium (137-145) mmol/L Potassium (3.6-5.0) mmol/L Chloride (98-107) mmol/L Carbon Dioxide (22-30) mmol/L Anion Gap mmol/L BUN (7-17) mg/dL Creatinine (0.6-1.2) mg/dL Estimated GFR ml/min BUN/Creatinine Ratio % Glucose (65-100) mg/dL POC Glucose 354 H 320 H (70-105) mg/dL Calcium (8.4-10.2) mg/dL Troponin T < 0.010 (0.00-0.029) ng/mL HCG, Qual (Negative) Urine Color (Yellow) Urine Turbidity (Clear) Urine pH (5.0-7.0) Ur Specific [place] (1.003-1.030) Urine Protein (Negative) mg/dL Urine Glucose (UA) (Negative) mg/dL Urine Ketones (Negative) mg/dL Urine Blood (Negative) Urine Nitrite (Negative) Urine Bilirubin (Negative) Urine Urobilinogen (<2.0) mg/dL Ur Leukocyte Esterase (Negative) Urine WBC (Auto) (0.0-6.0) /HPF Urine RBC (Auto) (0.0-6.0) /HPF U Epithel Cells (Auto) (0-13.0) /HPF 07/04/20 Range/Units 04:46 WBC (4.5-11.0) K/mm3 RBC (3.65-5.03) M/mm3 Hgb (10.1-14.3) gm/dl Hct (30.3-42.9) % MCV (79-97) fl MCH (28-32) pg MCHC (30-34) % RDW (13.2-15.2) % Plt Count (140-440) K/mm3 Lymph % (Auto) (13.4-35.0) % Nicholas % (Auto) (0.0-7.3) % Eos % (Auto) (0.0-4.3) % Baso % (Auto) (0.0-1.8) % Lymph # (Auto) (1.2-5.4) K/mm3 Nicholas # (Auto) (0.0-0.8) K/mm3 Eos # (Auto) (0.0-0.4) K/mm3 Baso # (Auto) (0.0-0.1) K/mm3 Seg Neutrophils % (40.0-70.0) % Seg Neutrophils # (1.8-7.7) K/mm3 Sodium (137-145) mmol/L Potassium (3.6-5.0) mmol/L Chloride (98-107) mmol/L Carbon Dioxide (22-30) mmol/L Anion Gap mmol/L BUN (7-17) mg/dL Creatinine (0.6-1.2) mg/dL Estimated GFR ml/min BUN/Creatinine Ratio % Glucose (65-100) mg/dL POC Glucose 268 H (70-105) mg/dL Calcium (8.4-10.2) mg/dL Troponin T (0.00-0.029) ng/mL HCG, Qual (Negative) Urine Color (Yellow) Urine Turbidity (Clear) Urine pH (5.0-7.0) Ur Specific [place] (1.003-1.030) Urine Protein (Negative) mg/dL Urine Glucose (UA) (Negative) mg/dL Urine Ketones (Negative) mg/dL Urine Blood (Negative) Urine Nitrite (Negative) Urine Bilirubin (Negative) Urine Urobilinogen (<2.0) mg/dL Ur Leukocyte Esterase (Negative) Urine WBC (Auto) (0.0-6.0) /HPF Urine RBC (Auto) (0.0-6.0) /HPF U Epithel Cells (Auto) (0-13.0) /HPF - EKG Data -: EKG Interpreted by Ms EKG shows normal: sinus rhythm, ST-T waves (No ischemia) Rate: normal - Radiology Data Radiology results: report reviewed CHEST 1 VIEW INDICATION / CLINICAL INFORMATION: Chest Pain. COMPARISON: 12/13/2019 FINDINGS: SUPPORT DEVICES: None. HEART / MEDIASTINUM: No significant abnormality. LUNGS / PLEURA: There is linear atelectasis or scar in the right lung base. There are low lung volumes bilaterally no focal infiltrate is seen.. No pneumothorax. ADDITIONAL FINDINGS: No significant additional findings. IMPRESSION: 1. There is linear scar or atelectasis in the right lung base. There are low lung volumes. - Medical Decision Making Patient was into the hospital atypical chest pain with troponin negative x2. Patient presents also with uncontrolled glucose will place a glucose greater than 500 for the last 2 weeks. She is currently on Metformin only which is not controlling her sugar which was more controlled when she was taking both Metformin and insulin. Patient states she was taking sliding scale dosing of insulin before meals. As per medical record patient was on NPH and regular insulin in the past. For now she will be placed on regular insulin sliding scale in addition to her Metformin. Patient encouraged to followed up with a primary care doctor for better treatment of her underlying chronic conditions as opposed to being treated with various ED visits. Patient also appears to have a UTI and was provided 1 dose of IV Rocephin and will be discharged on Macrobid. Patient did have a small anion gap with initial BMP. Repeat VBG performed after patient received insulin and IV fluids. Shows resolution of anion gap, improvement in bicarb, and normal venous pH. Mild hypokalemia on second BMP likely secondary to insulin administration. Patient did receive p.o. potassium in the ED and will be discharged on potassium for home. Patient will be discharged home since her glucose and symptoms have improved with ED treatment. Critical Care Time: No Critical care attestation.: If time is entered above; I have spent that time in minutes in the direct care of this critically ill patient, excluding procedure time. ED Disposition Clinical Impression: Uncontrolled diabetes mellitus, Atypical chest pain, Urinary tract infection Disposition: DC-01 TO HOME OR SELFCARE Is pt being admited?: No Condition: Stable Instructions: Chest Pain (ED), Diabetes Mellitus Type 2 in Adults (ED), Urinary Tract Infection in Women (ED) Additional Instructions: Take the medication as prescribed. Follow-up with your doctor or doctor/clinic provided. Return if symptoms worsen as indicated by your discharge instructions. Prescriptions: Insulin Regular,Human U-500(Nf [HumuLIN R] See Protocol SQ TIDAC #20 ml Potassium Chloride [K-Dur] 20 meq PO BID #4 tab Nitrofurantoin Nicholas/M-Cryst [Macrobid CAP] 100 mg PO Q12HR #10 capsule Ibuprofen [Motrin] 800 mg PO Q8HR PRN #15 tablet PRN Reason: Pain , Severe (7-10) Referrals: PRIMARY CARE, [Primary Care Provider] - 3-5 Days [facility] [Provider Group] - 3-[address] [facility] [Outside] - 3-5 Days Time of Disposition: 05:36
[2020-07-04 00:47] LABS: Bilirubin,Urine NEG (Negative); Blood,Urine NEG (Negative); Color,Urine Straw (Yellow); Protein,Urine <15 mg/dL mg/dL (Negative); Urobilinogen,Urine < 2.0 mg/dL (<2.0)
[2020-07-04] MEDS ORDERED: POTASSIUM CHLORIDE ER 20 MEQ TAB PO ONE (03:22)
[2020-07-04] MEDS ORDERED: INSULIN REGULAR, HUMAN 100 UNIT/ML 3ML VIAL IV ONE ×2 (03:22)
[2020-07-04] MEDS ORDERED: cefTRIAXone/NS 1 GM/50 ML 1 GM/50 ML BAG IV ONE (03:23)
[2020-07-04 04:50] VITALS: BP 167/92
[2020-07-04 05:23] LABS: Blood Urea Nitrogen 8 mg/dL (7-17); Calcium 7.9 mg/dL (8.4-10.2); Hemolysis Index 16
[2020-07-04 05:24] LABS: BUN/Creatinine Ratio 16
== END 2020-07-04 05:47 | disposition home or self-care (01) ==
LOC: ED 21:06
DX: E11.65 Type 2 diabetes mellitus with hyperglycemia (principal); N39.0 Urinary tract infection, site not specified; R07.89 Other chest pain; E66.9 Obesity, unspecified; F17.200 Nicotine dependence, unspecified, uncomplicated; J45.909 Unspecified asthma, uncomplicated; Z68.38 Body mass index [BMI] 38.0-38.9, adult; Z79.899 Other long term (current) drug therapy; Z98.51 Tubal ligation status
CPT/HCPCS: 36415; 71045; 80048; 81001; 82805; 82962; 84484; 84703; 85025; 87086; 93005; 96361; 96365; 96375; 96376; 99284; J0696; J7030; J1815

== ENCOUNTER 2020-12-18 16:31 | Emergency (ER) | payer SELFPAY ==
--- NOTE | 2020-12-18 18:13 | Event Note ---
ED Screening Note Date of service: 12/18/20 Time: 18:11 ED Screening Note: 45-year-old female patient with history of diabetes presents to emergency department with complaints of an abscess to her chest wall for 2 days as well as nausea, anorexia, polydipsia, and polyuria for approximately 1 week. Patient states she attempted to check her blood glucose levels at home today but the machine read "high." General: Awake, appropriately interactive, no acute distress. Neck: Supple. Full range of motion intact. Cardiovascular: Normal peripheral perfusion. Pulmonary: No respiratory distress. Patient is speaking normally without use of accessory muscles. Skin: No apparent rashes or lesions. Neurological: No facial asymmetry. Speech is clear. Follows commands. Patient is alert and oriented. Musculoskeletal: Moves all four extremities spontaneously with normal range of motion. Psych: Cooperative. Appropriate mood and affect. FSBS >530 Temperature 100.1 + HR 92 in triage; ordered Tylenol + IV fluids I have greeted and performed a focused rapid initial assessment of this patient. A comprehensive ED assessment and evaluation of the patient, analysis of all test results, and completion of the medical decision-making process will be conducted by additional ED providers. This initial assessment/diagnostic orders/clinical plan/treatment(s) is/are subject to change based on patients health status, clinical progression and re-assessment. Further treatment and workup at subsequent clinical provider's discretion. Patient/guardian urged not to elope from the ED as their condition may be serious if not clinically assessed and managed.
[2020-12-18] MEDS ORDERED: SODIUM CHLORIDE 0.9% 1000 ML 1,000 ML IV ONE ×2 (18:16→22:00)
[2020-12-18] MEDS ORDERED: ACETAMINOPHEN 500 MG TAB PO ONE ×2 (18:16→23:25)
[2020-12-18 18:51] LABS: Basophils % (Auto) 0.4 % (0.0-1.8); Eosinophils # (Auto) 0.1 K/mm3 (0.0-0.4); Eosinophils % (Auto) 1.3 % (0.0-4.3); Hematocrit 43.8 % (30.3-42.9); Hemoglobin 14.4 gm/dl (10.1-14.3); Lymphocytes # (Auto) 1.9 K/mm3 (1.2-5.4); Lymphocytes % (Auto) 28.1 % (13.4-35.0); Mean Corpuscular HGB Conc 33 % (30-34); Mean Corpuscular Volume 88 fl (79-97); Monocytes # (Auto) 0.6 K/mm3 (0.0-0.8); Monocytes % (Auto) 8.8 % (0.0-7.3); Platelet Count 178 K/mm3 (140-440); Red Blood Count 4.97 M/mm3 (3.65-5.03); Red Cell Distribution Width 13.7 % (13.2-15.2)
[2020-12-18 19:11] LABS: Alanine Aminotransferase 32 units/L (7-56); Albumin 3.7 g/dL (3.9-5); Blood Urea Nitrogen 10 mg/dL (7-17); Hemolysis Index 5
[2020-12-18 19:15] LABS: BUN/Creatinine Ratio 14
--- NOTE | 2020-12-18 22:02 | Emergency Department Report ---
HPI - General Chief Complaint: Skin/Abscess/Foreign Body Time Seen by Provider: 12/18/20 21:50 - HPI HPI: Room 3 The patient is a 45-year-old female present with a chief complaint of left breast lesion. The patient states she thinks she was bitten by a spider on her left breast 12/15/2020 because when she awakened the following morning she felt a pimple there. Patient states the following day began to feel indurated and 2 days later developed into a blister. The patient states today prior to come to the emergency department he began to drain a pinkish discharge. Patient denies history of fever but admits to nausea without vomiting. The patient states although she been compliant with her diabetes medication her blood sugar has been noted ED Past Medical Hx - Past Medical History Hx Diabetes: Yes (type 2) Hx Asthma: Yes - Surgical History Additional Surgical History: Ectopic - Family History Family history: no significant - Social History Smoking Status: Current Every Day Smoker (2/3 pack/day) Substance Use Type: None (Denies illicit drug use), Alcohol (Rarely) - Medications Home Medications: Home Medications Medication Instructions Recorded Confirmed Last Taken Type Famotidine [Pepcid] 20 mg PO BID #60 tablet 08/23/19 Unknown Rx Fluconazole [Diflucan TAB] 100 mg PO QDAY #4 tablet 08/23/19 Unknown Rx Benzonatate [Tessalon Perles] 100 mg PO Q8HR #30 capsule 12/13/19 Unknown Rx Insulin NPH/Regular [NovoLIN 70/30] 75 unit SUB-Q BIDDIAB #5 vial 12/13/19 Unknown Rx metFORMIN XR [Glucophage XR] 500 mg PO QDDIAB #30 tablet 12/13/19 Unknown Rx Ibuprofen [Motrin] 800 mg PO Q8HR PRN #15 tablet 07/04/20 Unknown Rx Insulin Regular,Human U-500(Nf See Protocol SQ TIDAC #20 ml 07/04/20 Unknown Rx [HumuLIN R] Nitrofurantoin Mora/M-Cryst 100 mg PO Q12HR #10 capsule 07/04/20 Unknown Rx [Macrobid CAP] Potassium Chloride [K-Dur] 20 meq PO BID #4 tab 07/04/20 Unknown Rx Dicloxacillin Sodium 500 mg PO QID #56 capsule 12/19/20 Unknown Rx HYDROcodone/APAP 5-325 [[place] 1 - 2 each PO Q6HR PRN #14 tablet 12/19/20 Unknown Rx 5/325] ED Review of Systems ROS: Stated complaint: DRAINAGE FROM BREAST, VOMITING Other details as noted in HPI Constitutional: denies: fever Eyes: denies: eye pain ENT: denies: throat pain Respiratory: no symptoms reported Cardiovascular: denies: chest pain Endocrine: no symptoms reported Gastrointestinal: nausea. denies: vomiting Genitourinary: denies: dysuria Musculoskeletal: denies: back pain Skin: lesions Neurological: denies: headache Physical Exam - Physical Exam Vital Signs: Vital Signs 12/18/20 18:10 Temperature 100.1 F H Pulse Rate 92 H Blood Pressure 168/96 Vital Signs 12/18/20 12/18/20 12/18/20 18:10 22:46 23:16 Temperature 100.1 F H Pulse Rate 92 H Respiratory Rate Blood Pressure 168/96 169/94 164/91 O2 Sat by Pulse 97 97 Oximetry 12/18/20 12/18/20 12/19/20 23:30 23:46 00:30 Temperature Pulse Rate Respiratory 16 Rate Blood Pressure 182/92 154/70 O2 Sat by Pulse 96 97 Oximetry 12/19/20 12/19/20 12/19/20 02:30 02:46 03:46 Temperature Pulse Rate Respiratory Rate Blood Pressure 149/64 149/64 152/83 O2 Sat by Pulse 92 94 96 Oximetry 12/19/20 04:12 Temperature Pulse Rate 77 Respiratory Rate Blood Pressure O2 Sat by Pulse Oximetry Physical Exam: GENERAL: The patient is well-developed well-nourished female lying on stretcher not appearing to be in acute distress. [] HEENT: Normocephalic. Atraumatic. Extraocular motions are intact. Patient has moist mucous membranes. NECK: Supple. Trachea midline CHEST/LUNGS: Clear to auscultation. There is no respiratory distress noted. HEART/CARDIOVASCULAR: Regular. There is no tachycardia. There is no gallop rub or murmur. ABDOMEN: Abdomen is soft, nontender. Patient has normal bowel sounds. There is no abdominal distention. SKIN: Left breast with region of induration at approximately 9 o'clock position. Surrounding erythema/cellulitis approximately 14 cm in diameter. Erythema does not involve the areola. There is no axillary lymphadenopathy. NEURO: The patient is awake, alert, and oriented. The patient is cooperative. The patient has no focal neurologic deficits. The patient has normal speech MUSCULOSKELETAL: There is no evidence of acute injury. ED Course Vital Signs 12/18/20 18:10 Temperature 100.1 F H Pulse Rate 92 H Blood Pressure 168/96 - Consultations Consultation #1: 12/18/20 23:08 SURVEY SUPERVISOR paged 12/18/20 23:[address] Saint Clayton-recommends dicloxacillin 4 times daily x10 to 14 days. States patient may follow-up in the office as an outpatient if discharged ED Medical Decision Making - Lab Data Result diagrams: 12/18/20 18:27 12/18/20 18:27 Laboratory Tests 12/18/20 12/18/20 12/18/20 18:15 18:27 18:27 WBC 6.8 RBC 4.97 Hgb 14.4 H Hct 43.8 H MCV 88 MCH 29 MCHC 33 RDW 13.7 Plt Count 178 Lymph % (Auto) 28.1 Mora % (Auto) 8.8 H Eos % (Auto) 1.3 Baso % (Auto) 0.4 Lymph # (Auto) 1.9 Mora # (Auto) 0.6 Eos # (Auto) 0.1 Baso # (Auto) 0.0 Seg Neutrophils % 61.4 Seg Neutrophils # 4.2 VBG pH Sodium 130 L Potassium 4.5 Chloride 91.6 L Carbon Dioxide 30 Anion Gap 13 BUN 10 Creatinine 0.7 Estimated GFR > 60 BUN/Creatinine Ratio 14 Glucose 559 H* POC Glucose 582 H Lactic Acid Calcium 10.0 Magnesium 2.00 Total Bilirubin 0.20 AST 19 ALT 32 Alkaline Phosphatase 85 Total Protein 7.8 Albumin 3.7 L Albumin/Globulin Ratio 0.9 HCG, Qual Urine Color Urine Turbidity Urine pH Ur Specific [place] Urine Protein Urine Glucose (UA) Urine Ketones Urine Blood Urine Nitrite Urine Bilirubin Urine Urobilinogen Ur Leukocyte Esterase Urine WBC (Auto) Urine RBC (Auto) Urine Bacteria (Auto) Urine Mucus 12/18/20 12/18/20 12/18/20 18:27 18:27 18:27 WBC RBC Hgb Hct MCV MCH MCHC RDW Plt Count Lymph % (Auto) Mora % (Auto) Eos % (Auto) Baso % (Auto) Lymph # (Auto) Mora # (Auto) Eos # (Auto) Baso # (Auto) Seg Neutrophils % Seg Neutrophils # VBG pH 7.364 Sodium Potassium Chloride Carbon Dioxide Anion Gap BUN Creatinine Estimated GFR BUN/Creatinine Ratio Glucose POC Glucose Lactic Acid 2.80 H* Calcium Magnesium Total Bilirubin AST ALT Alkaline Phosphatase Total Protein Albumin Albumin/Globulin Ratio HCG, Qual Negative Urine Color Urine Turbidity Urine pH Ur Specific [place] Urine Protein Urine Glucose (UA) Urine Ketones Urine Blood Urine Nitrite Urine Bilirubin Urine Urobilinogen Ur Leukocyte Esterase Urine WBC (Auto) Urine RBC (Auto) Urine Bacteria (Auto) Urine Mucus 12/18/20 12/19/20 Unknown 03:07 WBC RBC Hgb Hct MCV MCH MCHC RDW Plt Count Lymph % (Auto) Mora % (Auto) Eos % (Auto) Baso % (Auto) Lymph # (Auto) Mora # (Auto) Eos # (Auto) Baso # (Auto) Seg Neutrophils % Seg Neutrophils # VBG pH Sodium Potassium Chloride Carbon Dioxide Anion Gap BUN Creatinine Estimated GFR BUN/Creatinine Ratio Glucose POC Glucose Lactic Acid 1.80 Calcium Magnesium Total Bilirubin AST ALT Alkaline Phosphatase Total Protein Albumin Albumin/Globulin Ratio HCG, Qual Urine Color Straw Urine Turbidity Clear Urine pH 5.0 Ur Specific [place] 1.025 Urine Protein <15 mg/dl Urine Glucose (UA) >=500 Urine Ketones Tr Urine Blood Neg Urine Nitrite Neg Urine Bilirubin Neg Urine Urobilinogen < 2.0 Ur Leukocyte Esterase Neg Urine WBC (Auto) < 1.0 Urine RBC (Auto) 1.0 Urine Bacteria (Auto) 1+ Urine Mucus Few - Medical Decision Making Breast ultrasound was ordered however not able to be performed per tech as she states it requires a special tech trained for breast which is not present tonight - Differential Diagnosis Cellulitis, breast abscess, DKA, hyperglycemia Critical care attestation.: If time is entered above; I have spent that time in minutes in the direct care o f this critically ill patient, excluding procedure time. ED Disposition Clinical Impression: Cellulitis of left breast Disposition: DC-01 TO HOME OR SELFCARE Is pt being admited?: No Does the pt Need Aspirin: No Condition: Stable Instructions: Cellulitis, Adult Additional Instructions: Return to the emergency department should you develop worsening symptoms, inability to tolerate food or liquids, high fever or any other concerns Prescriptions: Dicloxacillin Sodium 500 mg PO QID #56 capsule HYDROcodone/APAP 5-325 [[place] 5/325] 1 - 2 each PO Q6HR PRN #14 tablet PRN Reason: Pain Referrals: WALTER CASTKENNETH MD LUPE [Primary Care Provider] - 3-5 Days JOZEF LU MD [Staff Physician] - 3-5 Days (Dr. Saint Clayton is a professor of criminal justice. Please follow-up with her for further evaluation) Time of Disposition: 04:15
[2020-12-18] MEDS ORDERED: ONDANSETRON 4 MG/2 ML INJ IV ONE (22:47)
[2020-12-18 23:01] LABS: Bacteria,Urine 1+ /HPF (Negative); Bilirubin,Urine NEG (Negative); Blood,Urine NEG (Negative); Color,Urine Straw (Yellow); Mucus,Urine FEW /HPF; Protein,Urine <15 mg/dL mg/dL (Negative); Urobilinogen,Urine < 2.0 mg/dL (<2.0); WBC,Urine < 1.0 /HPF (0.0-6.0)
[2020-12-19] MEDS ORDERED: cefTRIAXone/NS 1 GM/50 ML 1 GM/50 ML BAG IV ONE (00:26)
[2020-12-19] MEDS ORDERED: METOCLOPRAMIDE 10 MG/2 ML INJ IV ONE (03:15)
[2020-12-19 04:12] VITALS: BP 152/83
== END 2020-12-19 05:08 | disposition home or self-care (01) ==
LOC: ED 16:31
DX: N61.0 Mastitis without abscess (principal); E11.9 Type 2 diabetes mellitus without complications; J45.909 Unspecified asthma, uncomplicated; F17.200 Nicotine dependence, unspecified, uncomplicated; F12.10 Cannabis abuse, uncomplicated; Z79.899 Other long term (current) drug therapy
CPT/HCPCS: 36415; 80053; 81001; 82140; 82805; 82962; 83735; 84703; 85025; 87040; 87116; 96361; 96365; 96375; 99284; J0696; J2405; J2765; J7030

== ENCOUNTER 2021-08-19 17:25 | Observation (INO) | payer SELFPAY ==
[2021-08-19] MEDS ORDERED: ASPIRIN 325 MG TAB PO ONE (17:31)
--- NOTE | 2021-08-19 17:55 | XRay Report ---
CHEST 2 VIEWS INDICATION / CLINICAL INFORMATION: chest pain. FINDINGS: SUPPORT DEVICES: None. HEART / MEDIASTINUM: No significant abnormality. LUNGS / PLEURA: No significant pulmonary or pleural abnormality. No pneumothorax. ADDITIONAL FINDINGS: No significant additional findings. IMPRESSION: 1. No acute findings. Signer Name: Marcellus Hernandez MD Signed: 08/19/2021 5:50 PM Workstation Name: [id number]
[2021-08-19] MEDS ORDERED: IBUPROFEN 400 MG TAB PO ONE (18:12)
[2021-08-19] MEDS ORDERED: NITROGLYCERIN 0.4 MG TAB SUBL SL PRN (18:12)
[2021-08-19] MEDS ORDERED: ACETAMINOPHEN 325 MG TAB PO ONE (18:12)
[2021-08-19] MEDS ORDERED: PANTOPRAZOLE 40 MG TAB PO ONE (18:12)
--- NOTE | 2021-08-19 18:12 | Emergency Department Report ---
ED Chest Pain HPI - General Chief Complaint: Chest Pain Stated Complaint: chest pain PUI?: No Time Seen by Provider: 08/19/21 17:59 Source: family, RN notes reviewed, old records reviewed Mode of arrival: Ambulatory Limitations: No Limitations - History of Present Illness Initial Comments: During the history and physical examination, I am chaperoned byKIRA WALSH The patient is a 46-year-old female. I have evaluated this patient in the past. Her past medical history includes morbid obesity, diabetes, tobacco use, with a strong family history of heart disease; reports family member having [place] in early 60s. The patient presents to the ER today with a complaint of intermittent central and left-sided chest pain, which involves radiation to the neck and left upper extremity, associated with shortness of breath, nausea, and anxiety. No recent cardiac stress test. No recent trauma. Patient took aspirin today. No recent cardiac risk ratification. Denies travel, surgery, immobilization, DVT/PE risk factors, leg pain or leg swelling. MD Complaint: chest pain -: Gradual, days(s) Pain Location: substernal, left chest Pain Radiation: back, neck Severity: moderate Quality: aching Consistency: intermittent Improves With: rest Worsens With: exertion, palpation, movement re: nausea, dyspnea Aspirin use within the Past 7 Days: (1) Yes - Related Data On Oral Contraceptives: No Previous Rx's Medication Instructions Recorded Last Taken Type Famotidine [Pepcid] 20 mg PO BID #60 tablet 08/23/19 Unknown Rx Fluconazole [Diflucan TAB] 100 mg PO QDAY #4 tablet 08/23/19 Unknown Rx Benzonatate [Tessalon Perles] 100 mg PO Q8HR #30 capsule 12/13/19 Unknown Rx Insulin NPH/Regular [NovoLIN 70/30] 75 unit SUB-Q BIDDIAB #5 vial 12/13/19 U nknown Rx metFORMIN XR [Glucophage XR] 500 mg PO QDDIAB #30 tablet 12/13/19 Unknown Rx Ibuprofen [Motrin] 800 mg PO Q8HR PRN #15 tablet 07/04/20 Unknown Rx Nitrofurantoin [place]/M-Cryst 100 mg PO Q12HR #10 capsule 07/04/20 Unknown Rx [Macrobid CAP] Potassium Chloride [K-Dur] 20 meq PO BID #4 tab 07/04/20 Unknown Rx Dicloxacillin Sodium 500 mg PO QID #56 capsule 12/19/20 Unknown Rx HYDROcodone/APAP 5-325 [[place] 1 - 2 each PO Q6HR PRN #14 tablet 12/19/20 Unknown Rx 5/325] Insulin Regular,Human U-500(Nf See Protocol SQ TIDAC #20 ml 12/19/20 Unknown Rx [HumuLIN R] Allergies Allergy/AdvReac Type Severity Reaction Status Date / Time No Known Allergies Allergy Unverified 08/18/19 10:54 Heart Score - HEART Score History: Moderately suspicious EKG: Non-specific Age: 45-65 Risk factors: > 3 risk factors or hx of atherosclerotic disease Troponin: < normal limit HEART Score: 5 - EKG Read Time Time EKG Completed: 05:43 EKG Read Time: 05:43 - Critical Actions Critical Actions: 4-6 pts:12-16.6% risk of adverse cardiac event. Should be admi tted ED Review of Systems ROS: Stated complaint: chest pain Other details as noted in HPI Constitutional: denies: diaphoresis, other Eyes: denies: eye discharge ENT: denies: epistaxis Respiratory: shortness of breath. denies: cough Cardiovascular: chest pain Gastrointestinal: nausea. denies: abdominal pain, hematemesis, melena, hematochezia Genitourinary: denies: dysuria Musculoskeletal: arthralgia, myalgia Neurological: weakness Psychiatric: anxiety Hematological/Lymphatic: denies: easy bleeding ED Past Medical Hx - Past Medical History Hx Congestive Heart Failure: No Hx Diabetes: Yes (type 2) Hx Asthma: Yes Hx COPD: No Hx HIV: No - Surgical History Additional Surgical History: Ectopic - Social History Smoking Status: Current Every Day Smoker (2/3 pack/day) Substance Use Type: None (Denies illicit drug use), Alcohol (Rarely) - Medications Home Medications: Home Medications Medication Instructions Recorded Confirmed Last Taken Type Famotidine [Pepcid] 20 mg PO BID #60 tablet 08/23/19 Unknown Rx Fluconazole [Diflucan TAB] 100 mg PO QDAY #4 tablet 08/23/19 Unknown Rx Benzonatate [Tessalon Perles] 100 mg PO Q8HR #30 capsule 12/13/19 Unknown Rx Insulin NPH/Regular [NovoLIN 70/30] 75 unit SUB-Q BIDDIAB #5 vial 12/13/19 Unknown Rx metFORMIN XR [Glucophage XR] 500 mg PO QDDIAB #30 tablet 12/13/19 Unknown Rx Ibuprofen [Motrin] 800 mg PO Q8HR PRN #15 tablet 07/04/20 Unknown Rx Nitrofurantoin [place]/M-Cryst 100 mg PO Q12HR #10 capsule 07/04/20 Unknown Rx [Macrobid CAP] Potassium Chloride [K-Dur] 20 meq PO BID #4 tab 07/04/20 Unknown Rx Dicloxacillin Sodium 500 mg PO QID #56 capsule 12/19/20 Unknown Rx HYDROcodone/APAP 5-325 [[place] 1 - 2 each PO Q6HR PRN #14 tablet 12/19/20 Unknown Rx 5/325] Insulin Regular,Human U-500(Nf See Protocol SQ TIDAC #20 ml 12/19/20 Unknown Rx [HumuLIN R] ED Physical Exam - General Limitations: No Limitations General appearance: alert, in no apparent distress, obese - Head Head exam: Present: atraumatic, normocephalic - Eye Eye exam: Present: normal appearance, EOMI. Absent: nystagmus - ENT ENT exam: Present: normal exam, normal orophraynx, mucous membranes moist, normal external ear exam - Neck Neck exam: Present: normal inspection, full ROM. Absent: tenderness, meningismus - Respiratory Respiratory exam: Present: normal lung sounds bilaterally, chest wall tenderness. Absent: respiratory distress, wheezes, rales, rhonchi, stridor - Cardiovascular Cardiovascular Exam: Present: regular rate, normal rhythm, normal heart sounds. Absent: bradycardia, tachycardia, irregular rhythm, systolic murmur, diastolic murmur, rubs, gallop - GI/Abdominal GI/Abdominal exam: Present: soft, normal bowel sounds. Absent: distended, tenderness, guarding, rebound, rigid, pulsatile mass - Extremities Exam Extremities exam: Present: normal inspection, full ROM, other (2+ pulses noted in the bilateral upper and lower extremities. There is no palpable cord. negative Homans sign. Muscular compartments are soft. The pelvis is stable.). Absent: pedal edema, calf tenderness - Back Exam Back exam: Present: normal inspection, full ROM. Absent: tenderness, CVA tenderness (R), CVA tenderness (L), paraspinal tenderness, vertebral tenderness - Neurological Exam Neurological exam: Present: alert, oriented X3, normal gait, other (No facial droop. Tongue midline. Extraocular movements intact bilaterally. Facial sensation intact to light touch in V1, V2, V3 distribution bilaterally. 5 and a 5 strength in 4 extremities. Sensation intact to light touch in 4 extremiti es.). Absent: motor sensory deficit - Psychiatric Psychiatric exam: Present: anxious - Skin Skin exam: Present: warm, dry, intact, normal color. Absent: rash ED Course Vital Signs 08/19/21 17:31 Temperature 98.8 F Pulse Rate 82 Respiratory 18 Rate Blood Pressure 200/95 [Right] O2 Sat by Pulse 98 Oximetry - Reevaluation(s) Reevaluation #1: 08/19/21 19:16 Differential diagnosis, including but not limited to: GERD, gastritis, hiatal hernia, pneumonia, costochondritis, acute coronary syndrome, radiculopathy Assessment and plan: 46-year-old female, who was afebrile, with reassuring vital signs with exception of hypertension, aortic disease is unlikely, given lack of pulsatile abdominal mass, equal pulses in the upper and lower extremities, description of pain, duration of pain, known presence of chronic hypertension, normal x-ray of the chest/mediastinum, not currently tachycardic, tachypneic or hypoxic, low risk by Wells criteria for pulmonary embolism, PERC negative, with concerning chest pain, strong family history, and multiple cardiovascular risk factors, heart score of 4/5, with no recent cardiac risk ratification. Place patient on cardiac/vascular sonographer. Treat symptoms. Administer Norvasc for hypertension. Contact cardiology on-call, to discuss plan of care, anticipate admission to the medical service for cardiac risk stratification. 08/19/21 21:23 Contacted cardiology on-call, Dr. Daly. Discussed history, physical, laboratory studies EKG findings and overall clinical impression. Admission recommended for cardiac stress test, advises that cardiology can and will follow in consultation. Discussed this with the patient. She is agreeable to admission and hospitalization. Hospital physician, Dr.S Palomino to admit to [facility] WESLY score - Wesly Score Age > 65: (0) No Aspirin use within the Past 7 Days: (1) Yes 3 or more CAD Risk Factors: (1) Yes 2 or more Angina events in past 24 hrs: (1) Yes Known CAD with more than 50% Stenosis: (0) No Elevated Cardiac Markers: (0) No ST Deviation Greater than 0.5mm: (0) No WESLY Score: 3 ED Medical Decision Making - Lab Data Result diagrams: 08/19/21 18:19 08/19/21 18:19 Vital Signs 08/19/21 17:31 Temperature 98.8 F Pulse Rate 82 Respiratory 18 Rate Blood Pressure 200/95 [Right] O2 Sat by Pulse 98 Oximetry Lab Results 08/19/21 08/19/21 08/19/21 Range/Units 18:19 18:19 18:19 WBC 5.8 (4.5-11.0) K/mm3 RBC 4.97 (3.65-5.03) M/mm3 Hgb 14.1 (10.1-14.3) gm/dl Hct 43.9 H (30.3-42.9) % MCV 88 (79-97) fl MCH 28 (28-32) pg MCHC 32 (30-34) % RDW 14.5 (13.2-15.2) % Plt Count 266 (140-440) K/mm3 Lymph % (Auto) 41.1 H (13.4-35.0) % [place] % (Auto) 7.0 (0.0-7.3) % Eos % (Auto) 1.1 (0.0-4.3) % Baso % (Auto) 0.4 (0.0-1.8) % Lymph # (Auto) 2.4 (1.2-5.4) K/mm3 [place] # (Auto) 0.4 (0.0-0.8) K/mm3 Eos # (Auto) 0.1 (0.0-0.4) K/mm3 Baso # (Auto) 0.0 (0.0-0.1) K/mm3 Seg Neutrophils % 50.4 (40.0-70.0) % Seg Neutrophils # 2.9 (1.8-7.7) K/mm3 PT 13.3 (12.2-14.9) Sec. INR 0.91 (0.87-1.13) Sodium 138 (137-145) mmol/L Potassium 3.7 (3.6-5.0) mmol/L Chloride 102.7 (98-107) mmol/L Carbon Dioxide 22 (22-30) mmol/L Anion Gap 17 mmol/L BUN 11 (7-17) mg/dL Creatinine 0.6 (0.6-1.2) mg/dL Estimated GFR > 60 ml/min BUN/Creatinine Ratio 18 % Glucose 175 H (65-100) mg/dL Calcium 9.5 (8.4-10.2) mg/dL Total Bilirubin 0.20 (0.1-1.2) mg/dL AST 16 (5-40) units/L ALT 21 (7-56) units/L Alkaline Phosphatase 78 (35-129) units/L Total Creatine Kinase (30-135) units/L Troponin T < 0.010 (0.00-0.029) ng/mL Total Protein 8.0 (6.3-8.2) g/dL Albumin 4.0 (3.9-5) g/dL Albumin/Globulin Ratio 1.0 % HCG, Quant (0-4) mIU/mL 08/19/21 08/19/21 Range/Units 18:19 18:19 WBC (4.5-11.0) K/mm3 RBC (3.65-5.03) M/mm3 Hgb (10.1-14.3) gm/dl Hct (30.3-42.9) % MCV (79-97) fl MCH (28-32) pg MCHC (30-34) % RDW (13.2-15.2) % Plt Count (140-440) K/mm3 Lymph % (Auto) (13.4-35.0) % [place] % (Auto) (0.0-7.3) % Eos % (Auto) (0.0-4.3) % Baso % (Auto) (0.0-1.8) % Lymph # (Auto) (1.2-5.4) K/mm3 [place] # (Auto) (0.0-0.8) K/mm3 Eos # (Auto) (0.0-0.4) K/mm3 Baso # (Auto) (0.0-0.1) K/mm3 Seg Neutrophils % (40.0-70.0) % Seg Neutrophils # (1.8-7.7) K/mm3 PT (12.2-14.9) Sec. INR (0.87-1.13) Sodium (137-145) mmol/L Potassium (3.6-5.0) mmol/L Chloride (98-107) mmol/L Carbon Dioxide (22-30) mmol/L Anion Gap mmol/L BUN (7-17) mg/dL Creatinine (0.6-1.2) mg/dL Estimated GFR ml/min BUN/Creatinine Ratio % Glucose (65-100) mg/dL Calcium (8.4-10.2) mg/dL Total Bilirubin (0.1-1.2) mg/dL AST (5-40) units/L ALT (7-56) units/L Alkaline Phosphatase (35-129) units/L Total Creatine Kinase 49 (30-135) units/L Troponin T (0.00-0.029) ng/mL Total Protein (6.3-8.2) g/dL Albumin (3.9-5) g/dL Albumin/Globulin Ratio % HCG, Quant 0.595 (0-4) mIU/mL - EKG Data -: EKG Interpreted by Ok EKG shows normal: sinus rhythm Rate: normal - EKG Data 08/19/21 19:15 The EKG is interpreted at 05: 40 3 PM Sinus rhythm, rate 78 bpm. Normal axis, normal P wave axis, left ventricular hypertrophy, and motion artifact. Nonspecific T wave abnormalities. This is an abnormal EKG. This is not a STEMI. When compared to prior EKG from 07/03/2020, T wave inversions in 1 and aVL appear to be new/more prominent. This EKG is not a STEMI. - Radiology Data Radiology results: pending, report reviewed, image reviewed CHEST 2 VIEWS INDICATION / CLINICAL INFORMATION: chest pain. FINDINGS: SUPPORT DEVICES: None. HEART / MEDIASTINUM: No significant abnormality. LUNGS / PLEURA: No significant pulmonary or pleural abnormality. No pneumothorax. ADDITIONAL FINDINGS: No significant additional findings. IMPRESSION: 1. No a cute findings. Signer Name: Marcellus Hernandez MD Signed: 08/19/2021 4:50 PM Workstation Name: [id number] Critical care attestation.: If time is entered above; I have spent that time in minutes in the direct care of this critically ill patient, excluding procedure time. ED Disposition Clinical Impression: Hypertension, Obesity (BMI 30.0-34.9), Acute chest pain Disposition: 09 ADMITTED INPATIENT Is pt being admited?: Yes Does the pt Need Aspirin: No Condition: Good Instructions: Chest Pain (ED), Hypertension (ED)
[2021-08-19 18:47] LABS: Basophils % (Auto) 0.4 % (0.0-1.8); Eosinophils # (Auto) 0.1 K/mm3 (0.0-0.4); Eosinophils % (Auto) 1.1 % (0.0-4.3); Hematocrit 43.9 % (30.3-42.9); Hemoglobin 14.1 gm/dl (10.1-14.3); Lymphocytes # (Auto) 2.4 K/mm3 (1.2-5.4); Lymphocytes % (Auto) 41.1 % (13.4-35.0); Mean Corpuscular HGB Conc 32 % (30-34); Mean Corpuscular Volume 88 fl (79-97); Monocytes # (Auto) 0.4 K/mm3 (0.0-0.8); Platelet Count 266 K/mm3 (140-440); Red Blood Count 4.97 M/mm3 (3.65-5.03); Red Cell Distribution Width 14.5 % (13.2-15.2)
[2021-08-19 18:55] LABS: INR 0.91 (0.87-1.13)
[2021-08-19 18:59] LABS: Alanine Aminotransferase 21 units/L (7-56); Blood Urea Nitrogen 11 mg/dL (7-17); Calcium 9.5 mg/dL (8.4-10.2); Hemolysis Index 12
[2021-08-19 19:00] LABS: BUN/Creatinine Ratio 18
[2021-08-19] MEDS ORDERED: amLODIPine 5 MG TAB PO ONE (19:14)
[2021-08-19] MEDS ORDERED: MORPHINE 4 MG/1 ML INJ IV PRN ×2 (21:50)
[2021-08-19] MEDS ORDERED: MAGNESIUM HYDROXIDE (MOM) ORAL LIQD UDC PO PRN (21:50)
[2021-08-19] MEDS ORDERED: DEXTROSE 50% IN WATER (25GM) 50 ML SYRINGE IV PRN (21:50)
[2021-08-19] MEDS ORDERED: MORPHINE 2 MG/1 ML INJ IV PRN (21:50)
[2021-08-19] MEDS ORDERED: ACETAMINOPHEN 650 MG RECT SUPP PR PRN (21:50)
[2021-08-19] MEDS ORDERED: ONDANSETRON 4 MG/2 ML INJ IV PRN (21:50)
--- NOTE | 2021-08-19 22:05 | History and Physical Report ---
History of Present Illness Date of examination: 08/19/21 Date of admission: 08/19/21 21:24 Chief complaint: Chest Pain History of present illness: 46-year-old -[place]ag[place] female with known history of morbid obesity, diabetes mellitus, tobacco abuse and a strong family history of heart disease presenting to the emergency room today complaining of chest pain. Chest pain is is left-sided said to be intermittent radiating towards the neck and left shoulder with some associated nausea and shortness of breath. Patient denies any headache or dizziness and denies any diaphoresis. She denies any known exacerbating factor or relieving factor. Upon arrival in the emergency room blood pressure was quite elevated With systolic in the 200s and diastolic in the 90s. She was given a dose of amlodipine with some improvement in her blood pressure. Work-up in the emergency room today including EKG, troponin and chest x-ray were unremarkable. Patient is being admitted for chest pain evaluation. Past History Past Medical History: diabetes, hypertension, other (Asthma) Past Surgical History: Other (Ectopic ) Social history: smoking (Current daily smoker) Family history: CAD (Family history of coronary artery disease-family member wit h PA at age 60) Medications and Allergies Allergies Allergy/AdvReac Type Severity Reaction Status Date / Time No Known Allergies Allergy Unverified 08/18/19 10:54 Home Medications Medication Instructions Recorded Confirmed Last Taken Type Famotidine [Pepcid] 20 mg PO BID #60 tablet 08/23/19 Unknown Rx Fluconazole [Diflucan TAB] 100 mg PO QDAY #4 tablet 08/23/19 Unknown Rx Benzonatate [Tessalon Perles] 100 mg PO Q8HR #30 capsule 12/13/19 Unknown Rx Insulin NPH/Regular [NovoLIN 70/30] 75 unit SUB-Q BIDDIAB #5 vial 12/13/19 Unknown Rx metFORMIN XR [Glucophage XR] 500 mg PO QDDIAB #30 tablet 12/13/19 Unknown Rx Ibuprofen [Motrin] 800 mg PO Q8HR PRN #15 tablet 07/04/20 Unknown Rx Nitrofurantoin [place]/M-Cryst 100 mg PO Q12HR #10 capsule 07/04/20 Unknown Rx [Macrobid CAP] Potassium Chloride [K-Dur] 20 meq PO BID #4 tab 07/04/20 Unknown Rx Dicloxacillin Sodium 500 mg PO QID #56 capsule 12/19/20 Unknown Rx HYDROcodone/APAP 5-325 [[place] 1 - 2 each PO Q6HR PRN #14 tablet 12/19/20 Unknown Rx 5/325] Insulin Regular,Human U-500(Nf See Protocol SQ TIDAC #20 ml 12/19/20 Unknown Rx [HumuLIN R] Active Meds: Active Medications Acetaminophen (Acetaminophen 650 Mg Rect Supp) 650 mg [place] Q4H PRN PRN Reason: Pain MILD(1-3)/Fever >100.5/PEDRO Aspirin (Aspirin Ec 325 Mg Tab) 325 mg PO QDAY BIMAL Dextrose (Dextrose 50% In Water (25gm) 50 Ml Syringe) 50 ml IV Q30MIN PRN; Protocol PRN Reason: Hypoglycemia Dextrose (Dextrose 50% In Water (25gm) 50 Ml Syringe) 50 ml IV Q30MIN PRN; Protocol PRN Reason: Hypoglycemia Insulin Human Lispro (Insulin Lispro 100 Unit/Ml) 0 unit SUB-Q ACHS BIMAL; Protocol Magnesium Hydroxide (Magnesium Hydroxide (Mom) Oral Liqd Udc) 30 ml PO Q4H PRN PRN Reason: Constipation Morphine Sulfate (Morphine 2 Mg/1 Ml Inj) 2 mg IV Q4H PRN PRN Reason: Pain, Moderate (4-6) Morphine Sulfate (Morphine 4 Mg/1 Ml Inj) 4 mg IV Q4H PRN PRN Reason: Pain , Severe (7-10) Morphine Sulfate (Morphine 4 Mg/1 Ml Inj) 2 mg IV Q5MIN PRN PRN Reason: Chest Pain unrelieved by NTG Nitroglycerin (Nitroglycerin 0.4 Mg Tab Subl) 0.4 mg SL .Q5MIN PRN PRN Reason: Chest Pain Ondansetron HCl (Ondansetron 4 Mg/2 Ml Inj) 4 mg IV Q8H PRN PRN Reason: Nausea And Vomiting Sodium Chloride (Sodium Chloride 0.9% 10 Ml Flush Syringe) 10 ml IV BID BIMAL Sodium Chloride (Sodium Chloride 0.9% 10 Ml Flush Syringe) 10 ml IV PRN PRN PRN Reason: LINE FLUSH Sodium Chloride (Sodium Chloride 0.9% 10 Ml Flush Syringe) 10 ml IV PRN PRN PRN Reason: LINE FLUSH Review of Systems Constitutional: no fever, no chills Ears, nose, mouth and throat: no nasal congestion, no sore throat Cardiovascular: chest pain, no orthopnea, no palpitations Respiratory: no cough, no shortness of breath Gastrointestinal: nausea, no abdominal pain, no vomiting Genitourinary Female: no pelvic pain, no flank pain, no dysuria, no hematuria Musculoskeletal: no neck pain, no low back pain Integumentary: no rash, no pruritis Neurological: no headaches, no confusion Psychiatric: no anxiety, no depression Endocrine: no polyphagia, no polydipsia, no polyuria Exam - Constitutional Vitals: Temp Pulse Resp BP Pulse Ox 98.8 F 76 18 179/84 97 08/19/21 17:31 08/19/21 21:53 08/19/21 21:53 08/19/21 21:53 08/19/21 21:53 General appearance: Present: no acute distress, well-nourished, obese - EENT Eyes: Present: PERRL, EOM intact. Absent: scleral icterus ENT: hearing intact, clear oral mucosa, dentition normal - Neck Neck: Present: supple, normal ROM - Respiratory Respiratory effort: normal Respiratory: bilateral: CTA - Cardiovascular Rhythm: regular Heart Sounds: Present: S1 & S2. Absent: gallop, systolic murmur, diastolic murmur, rub, click - Extremities Extremities: no ischemia, pulses intact, pulses symmetrical, No edema, normal temperature, normal color, Full ROM Peripheral Pulses: within normal limits - Abdominal General gastrointestinal: Present: soft, non-tender, non-distended, normal bowel sounds. Absent: mass - Integumentary Integumentary: Present: clear, warm, dry. Absent: rash - Musculoskeletal Musculoskeletal: strength equal bilaterally - Psychiatric Psychiatric: appropriate mood/affect, intact judgment & insight, memory intact, cooperative - Neurologic Neurologic: CNII-XII intact, no focal deficits, moves all extremities HEART Score - HEART Score History: Moderately suspicious EKG: Non-specific Age: 45-65 Risk factors: > 3 risk factors or hx of atherosclerotic disease Troponin: Troponin T < 0.010 ng/mL (0.00-0.029) 08/19/21 20:57 Troponin: < normal limit HEART Score: 5 - Critical Actions Critical Actions: 4-6 pts:12-16.6% risk of adverse cardiac event. Should be admitted Results - Labs CBC & Chem 7: 08/19/21 18:19 08/19/21 22:41 Labs: Abnormal lab results 08/19/21 08/19/21 Range/Units 18:19 18:19 Hct 43.9 H (30.3-42.9) % Lymph % (Auto) 41.1 H (13.4-35.0) % Glucose 175 H (65-100) mg/dL Assessment and Plan - Patient Problems (1) Acute chest pain Current Visit: Yes Status: Acute Plan to address problem: Patient admitted and placed on telemetry. We will check serial cardiac enzymes. Patient placed on daily aspirin, sublingual nitroglycerin and IV morphine as needed for chest pain. Cardiology evaluation requested. (2) Diabetes mellitus Current Visit: Yes Status: Acute Plan to address problem: Patient placed on sliding scale insulin. We will monitor Accu-Cheks.. (3) Hypertension Current Visit: Yes Status: Acute Plan to address problem: Patient will be placed on IV hydralazine as needed. We will monitor vital signs closely. (4) Obesity (BMI 30.0-34.9) Current Visit: Yes Status: Acute Plan to address problem: Lifestyle modification encouraged Dietary consult requested (5) DVT prophylaxis Current Visit: No Status: Acute Plan to address problem: Patient placed on subcutaneous heparin. (6) Full code status Current Visit: Yes Status: Acute Plan to address problem: Patient is full code.
[2021-08-19 23:36] LABS: Blood Urea Nitrogen 10 mg/dL (7-17); Calcium 9.4 mg/dL (8.4-10.2); Hemolysis Index 6
[2021-08-19 23:43] LABS: BUN/Creatinine Ratio 14
[2021-08-20] MEDS ORDERED: hydrALAZINE 20 MG/1 ML INJ IV PRN (00:23)
[2021-08-20] MEDS: INSULIN LISPRO 100 UNIT/ML SUB-Q SCH ×2 (03:21→07:48)
[2021-08-20 05:35] LABS: INR 0.95 (0.87-1.13)
[2021-08-20 05:37] LABS: BUN/Creatinine Ratio 20; Blood Urea Nitrogen 10 mg/dL (7-17); Calcium 8.8 mg/dL (8.4-10.2); Hemolysis Index 75
[2021-08-20] MEDS ORDERED: HEPARIN 5,000 UNIT/1 ML VIAL SUB-Q SCH (06:00)
[2021-08-20] MEDS ORDERED: REGADENOSON 0.4 MG/5 ML INJ IV ONE (07:12)
[2021-08-20] MEDS ORDERED: ACETAMINOPHEN 325 MG TAB PO PRN (09:00)
[2021-08-20] MEDS ORDERED: ASPIRIN EC 325 MG TAB PO SCH (10:00)
[2021-08-20 10:36] VITALS: BP 155/87
--- NOTE | 2021-08-20 13:02 | Nuclear Medicine Report ---
APPROVED REPORT Exam: Nuclear Stress Test Indication: Chest pain Patient Location: [address] [place], [place] [address] Room #: 491 Ht: 5 ft 9 in Wt: 205 lbs BSA: 2.09 m2 HR: 69 bpmBP: 173/85 mmHgBMI: 30.26 Stress Test Details Stress Test: Pharmacologic stress testing performed using 0.4 mg of regadenoson per 5 mL given IV over 10 seconds. HR Resting HR: 69 bpm Max HR Achieved: 96 bpm Max Heart Rate (APMHR): 173 bpm Target HR (85% APMHR): 147 bpm % of APMHR: 55 Recovery HR: 87 bpm HR response to stress: Normal HR response to stress BP Resting BP: 173/85 mmHg Max BP: 179/93 mmHg Recovery BP: 155/87 mmHg ECG Resting ECG: Sinus Rhythm Nonspecific ST-T wave abnormality Stress ECG: Sinus Rhythm ST Change: None Arrhythmia: None Recovery ECG: Sinus Rhythm Recovery ST Change: None Recovery Arrhythmia: None Clinical Reason for Termination: Completed protocol Stress Symptoms: None Stress ECG Conclusion No chest pain and no ST changes with pharmacologic stress, myocardial perfusion images are pending for final test interpretation. NM EXAM: Myocardial Perfusion REST/STRESS Imaging Protocol: Rest Tc-99m/Stress Tc-99m 1 day Resting Data Rest SPECT myocardial perfusion imaging was performed in supine position 45 minutes following the intravenous injection of 10 mCi of Tc-99m Myoview. Time of rest injection: 0700 Date: 08/20/2021 Pharmacologic Stress Pharmacologic stress test was performed by injecting Regadenoson 0.4 mg IV push followed by the intravenous injection of 28 mCi of Tc-99m Myoview. Time of stress injection: 1015 Date: 08/20/2021 Gated Stress SPECT was performed 30 minutes after stress injection. The images were gated to evaluate regional wall motion and calculate left ventricular ejection fraction. Study Data TID = 1.09. Perfusion Wall Motion Normal left ventricular systolic function, ejection fraction 51%. Nuclear Conclusion ECG Findings: negative for ischemia Clinical Findings: negative for ischemia Nuclear Findings: negative for ischemia Left Ventricular Function: normal Risk Study: low Suboptimal study, no evidence of ischemia on myocardial perfusion imaging. Well-preserved left ventricular systolic function, ejection fraction 51%. Negative study. Conclusion No chest pain and no ST changes with pharmacologic stress, myocardial perfusion images are pending for final test interpretation.
--- NOTE | 2021-08-20 13:12 | Consultation ---
History of Present Illness Consult date: 08/20/21 Consult reason: chest pain History of present illness: The patient is a 46-year-old woman with a history of diabetes. There is no p rior cardiac history. She states that she does not have a primary care doctor due to absence of health insurance, she therefore manages her diabetes with medications prescribed to her on intermittent emergency room visits. She has not taken any diabetic medications for several months. In the last 2 days, she states that she has been feeling unwell. She does not provide any specific symptoms but said she decided to take a day off from work. On her anticipated return after she began to feel better, she was informed by her workplace that Covid restrictions required that she gets a doctor's excuse to return back to work. As a result of this, she decided to come to the emergency room. She reports no new symptoms that prompted her emergency room visit other than the requirement to get a doctor's excuse and the situation of not having a primary care physician. During review of systems in the hospital, she did report occasional, nonanginal type left shoulder "sharp" pains, she has no exertional chest pain, no shortness of breath, no palpitations, no lower extremity edema. Work-up in the hospital EKG was normal sinus rhythm, normal ECG with no ischemic changes. Serial troponin levels x4 were negative. Today, she was ordered for a Lexiscan thallium stress test by the medical service. Patient is in the stress lab, looks and feels comfortable in no acute distress. Lexiscan thallium stress test was completed, showed normal myocardial perfusion with no ischemic defects, left ventricular ejection fraction 51%. Past History Past Medical History: diabetes, hypertension, other (Asthma) Past Surgical History: Other (Ectopic ) Social history: smoking (Current daily smoker) Family history: CAD (Family history of coronary artery disease-family member with GA at age 60) Medications and Allergies Allergies Allergy/AdvReac Type Severity Reaction Status Date / Time No Known Allergies Allergy Verified 08/20/21 11:00 Home Medications Medication Instructions Recorded Confirmed Last Taken Type Insulin NPH/Regular [NovoLIN 70/30] 75 unit SUB-Q BIDDIAB #5 vial 12/13/19 08/20/21 1 Month Ago Rx ~07/21/21 Insulin Regular,Human U-500(Nf See Protocol SQ TIDAC #20 ml 12/19/20 08/20/21 1 Month Ago Rx [HumuLIN R] ~07/21/21 metFORMIN XR [Glucophage XR] 500 mg PO BID 08/20/21 08/20/21 1 Month Ago History ~07/21/21 Active Meds: Active Medications Acetaminophen (Acetaminophen 650 Mg Rect Supp) 650 mg WI Q4H PRN PRN Reason: Pain MILD(1-3)/Fever >100.5/PEDRO Acetaminophen (Acetaminophen 325 Mg Tab) 650 mg PO Q4H PRN PRN Reason: Pain, Mild (1-3) Last Admin: 08/20/21 09:02 Dose: 650 mg Documented by: Aspirin (Aspirin Ec 325 Mg Tab) 325 mg PO QDAY [facility] Dextrose (Dextrose 50% In Water (25gm) 50 Ml Syringe) 50 ml IV Q30MIN PRN; Protocol PRN Reason: Hypoglycemia Heparin Sodium (Porcine) (Heparin 5,000 Unit/1 Ml Vial) 5,000 unit SUB-Q Q8HR BIMAL Hydralazine HCl (Hydralazine 20 Mg/1 Ml Inj) 10 mg IV Q4HR PRN PRN Reason: Blood Pressure Insulin Human Lispro (Insulin Lispro 100 Unit/Ml) 0 unit SUB-Q ACHS [facility]; Protocol Last Admin: 08/20/21 03:21 Dose: Not Given Documented by: Magnesium Hydroxide (Magnesium Hydroxide (Mom) Oral Liqd Udc) 30 ml PO Q4H PRN PRN Reason: Constipation Morphine Sulfate (Morphine 2 Mg/1 Ml Inj) 2 mg IV Q4H PRN PRN Reason: Pain, Moderate (4-6) Morphine Sulfate (Morphine 4 Mg/1 Ml Inj) 4 mg IV Q4H PRN PRN Reason: Pain , Severe (7-10) Morphine Sulfate (Morphine 4 Mg/1 Ml Inj) 2 mg IV Q5MIN PRN PRN Reason: Chest Pain unrelieved by NTG Nitroglycerin (Nitroglycerin 0.4 Mg Tab Subl) 0.4 mg SL .Q5MIN PRN PRN Reason: Chest Pain Ondansetron HCl (Ondansetron 4 Mg/2 Ml Inj) 4 mg IV Q8H PRN PRN Reason: Nausea And Vomiting Sodium Chloride (Sodium Chloride 0.9% 10 Ml Flush Syringe) 10 ml IV BID [facility] Last Admin: 08/20/21 03:49 Dose: Not Given Documented by: Sodium Chloride (Sodium Chloride 0.9% 10 Ml Flush Syringe) 10 ml IV PRN PRN PRN Reason: LINE FLUSH Review of Systems Cardiovascular: chest pain, no orthopnea, no palpitations, no rapid/irregular heart beat, no edema, no syncope, no lightheadedness, no shortness of breath Physical Examination Vital Signs Temp Pulse Resp BP Pulse Ox 98.8 F 82 18 200/95 98 08/19/21 17:31 08/19/21 17:31 08/19/21 17:31 08/19/21 17:31 08/19/21 17:31 General appearance: no acute distress HEENT: Positive: PERRL Neck: Positive: neck supple Cardiac: Positive: Reg Rate and Rhythm Lungs: Positive: clear to auscultation Neuro: Positive: Grossly Intact Abdomen: Positive: Soft Female genitourinary: deferred Skin: Positive: Clear Extremities: Absent: edema Results 08/19/21 18:19 08/20/21 05:01 Cardiac Enzymes 08/19/21 Range/Units 18:19 AST 16 (5-40) units/L Coagulation 08/19/21 08/20/21 Range/Units 18:19 05:01 PT 13.3 13.7 (12.2-14.9) Sec. INR 0.91 0.95 (0.87-1.13) CBC 08/19/21 Range/Units 18:19 WBC 5.8 (4.5-11.0) K/mm3 RBC 4.97 (3.65-5.03) M/mm3 Hgb 14.1 (10.1-14.3) gm/dl Hct 43.9 H (30.3-42.9) % Plt Count 266 (140-440) K/mm3 Lymph # (Auto) 2.4 (1.2-5.4) K/mm3 [place] # (Auto) 0.4 (0.0-0.8) K/mm3 Eos # (Auto) 0.1 (0.0-0.4) K/mm3 Baso # (Auto) 0.0 (0.0-0.1) K/mm3 Comprehensive Metabolic Panel 08/19/21 08/19/21 08/20/21 Range/Units 18:19 22:41 05:01 Sodium 138 137 138 (137-145) mmol/L Potassium 3.7 3.2 L 3.8 (3.6-5.0) mmol/L Chloride 102.7 100.2 102.7 (98-107) mmol/L Carbon Dioxide 22 22 24 (22-30) mmol/L BUN 11 10 10 (7-17) mg/dL Creatinine 0.6 0.7 0.5 L (0.6-1.2) mg/dL Glucose 175 H 255 H 201 H (65-100) mg/dL Calcium 9.5 9.4 8.8 (8.4-10.2) mg/dL AST 16 (5-40) units/L ALT 21 (7-56) units/L Alkaline Phosphatase 78 (35-129) units/L Total Protein 8.0 (6.3-8.2) g/dL Albumin 4.0 (3.9-5) g/dL EKG interpretations - Telemetry EKG Rhythm: Sinus Rhythm Assessment and Plan - Patient Problems (1) Atypical chest pain Current Visit: Yes Status: Acute Plan to address problem: Patient was admitted with atypical type, nonanginal chest pain. Serial ECGs were sinus rhythm with no ischemic changes. Troponin levels x4 were negative. She underwent a Lexiscan thallium stress test, no ischemic defects, ejection fraction 51%. No further cardiac work-up is indicated, we will sign off.
--- NOTE | 2021-08-20 13:15 | Discharge Summary ---
Providers - Providers Date of Admission: 08/19/21 21:24 Attending physician: LEATHA KOCH MD 08/19/21 Consult to Cardiac Rehabilitation [CONS] Routine Reason For Exam: Phase I 08/19/21 18:11 Consult to Physician [CONS] Urgent Comment: Consulting Provider: HANSEL BAKER Physician Instructions: Reason For Exam: acute chest pain 08/19/21 21:55 Consult to Dietitian/Nutrition [CONS] Routine Physician Instructions: Reason For Exam: Reason for Consult: Diet education Primary care physician: PROPOSAL REP Hospitalization Reason for admission: Chest pain Condition: Stable Hospital course: 46-year-old -[place] female with known history of morbid obesity, diabetes mellitus, tobacco abuse and a strong family history of heart disease presenting to the emergency room today complaining of chest pain. Chest pain is is left-sided said to be intermittent radiating towards the neck and left shoulder with some associated nausea and shortness of breath. Patient denies any headache or dizziness and denies any diaphoresis. She denies any known exacerbating factor or relieving factor. Upon arrival in the emergency room blood pressure was quite elevated With systolic in the 200s and diastolic in the 90s. She was given a dose of amlodipine with some improvement in her blood pressure. Work-up in the emergency room today including EKG, troponin and chest x-ray were unremarkable. Patient is being admitted for chest pain evaluation. Patient underwent stress test that was negative, I discussed her Blood pressure and started her on Lisnopril, also advised her to follow with her doctor to monitor renal function and BP. Supervisor [employer] did see and evaluate the patient also. (1) Acute chest pain secondary to costochondritis Current Visit: Yes Status: Acute Plan to address problem: Patient admitted and placed on telemetry. We will check serial cardiac enzymes. Patient placed on daily aspirin, sublingual nitroglycerin and IV morphine as needed for chest pain. Cardiology evaluation requested. (2) Diabetes mellitus Current Visit: Yes Status: Acute Plan to address problem: Patient placed on sliding scale insulin. We will monitor Accu-Cheks.. (3) Hypertension Current Visit: Yes Status: Acute Plan to address problem: Patient will be placed on IV hydralazine as needed. We will monitor vital signs closely. (4) Obesity (BMI 30.0-34.9) Current Visit: Yes Status: Acute Plan to address problem: Lifestyle modification encouraged Dietary consult requested (5) DVT prophylaxis Current Visit: No Status: Acute Plan to address problem: Patient placed on subcutaneous heparin. (6) Full code status Current Visit: Yes Status: Acute Plan to address problem: Patient is full code. Disposition: 01 HOME / SELF CARE / HOMELESS Final Discharge Diagnosis (Prints w/discharge instructions): Atypical chest pain with costochondritis Time spent for discharge: 35 mins Core Measure Documentation - Palliative Care Palliative Care/ Comfort Measures: Not Applicable - Core Measures Any of the following diagnoses?: none Exam - Physical Exam Narrative exam: VITAL SIGNS: Reviewed. GENERAL: The patient appears normally developed, obese vital signs as documented. HEAD: No signs of head trauma. EYES: Pupils are equal. Extraocular motions intact. EARS: Hearing grossly intact. MOUTH: Oropharynx is normal. NECK: No adenopathy, no JVD. CHEST: Chest with clear breath sounds bilaterally. No wheezes, rales, or rhonchi. CARDIAC: Regular rate and rhythm. S1 and S2, without murmurs, gallops, or rubs. VASCULAR: No Edema. Peripheral pulses normal and equal in all extremities. ABDOMEN: Soft, non tender and non distended. No rebound or guarding, and no masses palpated. Bowel Sounds normal. MUSCULOSKELETAL: Good range of motion of all major joints. Extremities without clubbing, cyanosis or edema. NEUROLOGIC EXAM: Alert and oriented x 3 No focal sensory or strength deficits. Speech normal. Follows commands. PSYCHIATRIC: Mood normal. SKIN: detail exam as documented in skin assessment - Constitutional Vitals: Temp Pulse Resp BP Pulse Ox 98.3 F 67 20 155/87 94 08/20/21 07:53 08/20/21 07:53 08/20/21 07:53 08/20/21 10:07 08/20/21 07:53 Plan Activity: advance as tolerated, fall precautions Diet: low fat Special Instructions: record daily BP diary Follow up with: PRIMARY CARE, [Primary Care Provider] - 3-5 Days Forms: Work/School Release Form Prescriptions: lisinopriL [Lisinopril] 20 mg PO DAILY #30 tablet
--- NOTE | 2021-08-21 10:24 | Electrocardiograph Report ---
[facility] Test Date: 2021-08-19 Test Time: 21:37:32 Pat Name: OLIMPIA SAENZ Department: Room: A491 1 Gender: F Patient Safety Coordinator: DEANN : 1975 Requested By: MERVIN JUAREZ Order Number: [id number] Reading MD: Roldan Ulrich Measurements Intervals [place] Rate: 80 P: 56 WY: 154 QRS: 38 QRSD: 88 T: 124 QT: 385 QTc: 443 Interpretive Statements Sinus rhythm Probable LVH with secondary repol abnrm Anterior ST elevation, probably due to LVH No previous ECG available for comparison Electronically Signed On 08-21-2021 10:24:33 EST by Roldan Ulrich
--- NOTE | 2021-08-21 10:29 | Electrocardiograph Report ---
[facility] Test Date: 2021-08-20 Test Time: 10:42:15 Pat Name: OLIMPIA SAENZ Department: Room: A491 1 Gender: F Retail Warehouse Supervisor: SANDRA : 1975 Requested By: RENETTA KELLOGG Order Number: [id number] Reading MD: Roldan Ulrich Measurements Intervals [place] Rate: 73 P: 54 SD: 164 QRS: 41 QRSD: 89 T: 103 QT: 406 QTc: 449 Interpretive Statements Sinus rhythm Nonspecific T abnormalities, lateral leads Compared to ECG 08/19/2021 21:37:32 No significant change Electronically Signed On 08-21-2021 10:28:51 EST by Roldan Ulrich
== END 2021-08-20 15:15 | disposition home or self-care (01) ==
LOC: ED 17:25 → 4A 21:24
PROVIDERS: ADMIT Internal Medicine Geriatric Medicine; ATTEND Internal Medicine
DX: R07.89 Other chest pain (principal); I10 Essential (primary) hypertension; E11.9 Type 2 diabetes mellitus without complications; J45.909 Unspecified asthma, uncomplicated; E66.9 Obesity, unspecified; M94.0 Chondrocostal junction syndrome [Tietze]; F17.210 Nicotine dependence, cigarettes, uncomplicated; Z68.30 Body mass index [BMI] 30.0-30.9, adult; Z79.4 Long term (current) use of insulin; Z79.84 Long term (current) use of oral hypoglycemic drugs; Z79.82 Long term (current) use of aspirin
CPT/HCPCS: 36415; 71046; 78452; 80048; 80053; 82550; 82962; 84484; 84702; 85025; 85610; 93005; 93017; 99285; A9502; G0378; J2785

== ENCOUNTER 2021-12-16 18:18 | Emergency (ER) | payer SELFPAY ==
[2021-12-16] MEDS ORDERED: SODIUM CHLORIDE 0.9% 1000 ML 1,000 ML IV ONE (23:29)
--- NOTE | 2021-12-16 23:47 | Emergency Department Report ---
ED General Adult HPI - General Chief complaint: Weakness Stated complaint: GENERAL WEAKNESS Time Seen by Provider: 12/16/21 23:29 Source: patient Mode of arrival: Ambulatory Limitations: No Limitations - History of Present Illness Initial comments: Christina is a 46-year-old female with history of hypertension diabetes type 2. Patient states intermittent adherence to medication regimen. Patient presents for generalized weakness elevated blood sugar and abscess to buttocks. Patient states pain to buttocks is rated as 5/10 exacerbated by sitting. Denies fevers or chills no nausea no vomiting. No dizziness or lightheadedness. Is been no shortness of breath. Patient states symptoms are exacerbated by completing work duties. Symptoms are exacerbated by sitting. Patient currently treated with Metformin 500 3 times daily, along with 10 units twice daily. - Related Data Previous Rx's Medication Instructions Recorded Last Taken Type Insulin Regular,Human U-500(Nf See Protocol SQ TIDAC #20 ml 12/19/20 1 Month Ago Rx [HumuLIN R] ~07/21/21 Clindamycin [Clindamycin CAP] 300 mg PO Q6H 7 Days #28 cap 12/17/21 Unknown Rx Insulin NPH/Regular [NovoLIN 70/30] 75 unit SUB-Q BIDDIAB #5 vial 12/17/21 Unknown Rx lisinopriL [Lisinopril] 20 mg PO DAILY #30 tablet 12/17/21 Unknown Rx metFORMIN XR [Glucophage XR] 500 mg PO BID #60 tab 12/17/21 Unknown Rx Allergies Allergy/AdvReac Type Severity Reaction Status Date / Time No Known Allergies Allergy Verified 08/20/21 11:00 ED Review of Systems ROS: Stated complaint: GENERAL WEAKNESS Other details as noted in HPI Constitutional: no symptoms reported, malaise. denies: chills, fever Eyes: denies: eye pain, eye discharge, vision change ENT: denies: ear pain, throat pain Respiratory: denies: cough, shortness of breath, wheezing Cardiovascular: denies: chest pain, palpitations Endocrine: no symptoms reported Gastrointestinal: denies: abdominal pain, nausea, diarrhea Genitourinary: denies: urgency, dysuria, discharge Musculoskeletal: denies: back pain, joint swelling, arthralgia Skin: lesions, pruritus, other (Abscess buttocks). denies: rash Neurological: denies: headache, weakness, numbness, paresthesias, confusion, vertigo Psychiatric: denies: anxiety, depression Hematological/Lymphatic: denies: easy bleeding, easy bruising ED Past Medical Hx - Past Medical History Hx Hypertension: Yes Hx Congestive Heart Failure: No Hx Diabetes: Yes Hx Asthma: Yes Hx COPD: No Hx HIV: No - Surgical History Additional Surgical History: Ectopic - Social History Smoking Status: Current Every Day Smoker - Medications Home Medications: Home Medications Medication Instructions Recorded Confirmed Last Taken Type Insulin Regular,Human U-500(Nf See Protocol SQ TIDAC #20 ml 12/19/20 08/20/21 1 Month Ago Rx [HumuLIN R] ~07/21/21 Clindamycin [Clindamycin CAP] 300 mg PO Q6H 7 Days #28 cap 12/17/21 Unknown Rx Insulin NPH/Regular [NovoLIN 70/30] 75 unit SUB-Q BIDDIAB #5 vial 12/17/21 Unknown Rx lisinopriL [Lisinopril] 20 mg PO DAILY #30 tablet 12/17/21 Unknown Rx metFORMIN XR [Glucophage XR] 500 mg PO BID #60 tab 12/17/21 Unknown Rx ED Physical Exam - General Limitations: No Limitations General appearance: alert, in no apparent distress - Head Head exam: Present: normocephalic, normal inspection - Eye Eye exam: Present: normal appearance, PERRL, EOMI Pupils: Present: normal accommodation - ENT ENT exam: Present: mucous membranes moist - Neck Neck exam: Present: normal inspection, full ROM. Absent: tenderness - Respiratory Respiratory exam: Present: normal lung sounds bilaterally. Absent: respiratory distress, wheezes, stridor - Cardiovascular Cardiovascular Exam: Present: regular rate, normal rhythm, normal heart sounds. Absent: systolic murmur, diastolic murmur, rubs, gallop - GI/Abdominal GI/Abdominal exam: Present: soft, normal bowel sounds. Absent: distended, tenderness - Rectal Rectal exam: Present: deferred - Extremities Exam Extremities exam: Present: normal inspection, full ROM, normal capillary refill. Absent: tenderness - Back Exam Back exam: Present: normal inspection, full ROM. Absent: CVA tenderness (R), CVA tenderness (L) - Neurological Exam Neurological exam: Present: alert, oriented X3, CN II-XII intact, normal gait - Psychiatric Psychiatric exam: Present: normal affect, normal mood - Skin Skin exam: Present: warm, dry, intact, normal color. Absent: rash ED Course Vital Signs 12/16/21 19:44 Temperature 98.3 F Pulse Rate 94 H Respiratory 18 Rate Blood Pressure 209/103 O2 Sat by Pulse 100 Oximetry ED Medical Decision Making - Lab Data Result diagrams: 12/16/21 23:43 12/16/21 23:43 Labs 12/16/21 12/16/21 12/16/21 19:44 23:43 23:43 WBC 10.9 RBC 4.57 Hgb 12.7 Hct 39.7 MCV 87 MCH 28 MCHC 32 RDW 13.4 Plt Count 237 Lymph % (Auto) 15.4 [place] % (Auto) 8.5 H Eos % (Auto) 1.0 Baso % (Auto) 0.2 Lymph # (Auto) 1.7 [place] # (Auto) 0.9 H Eos # (Auto) 0.1 Baso # (Auto) 0.0 Seg Neutrophils % 74.9 H Seg Neutrophils # 8.1 H VBG pH Sodium 133 L Potassium 4.5 Chloride 93.9 L Carbon Dioxide 24 Anion Gap 20 BUN 9 Creatinine 0.9 Estimated GFR > 60 BUN/Creatinine Ratio 10 Glucose 456 H POC Glucose 357 H Calcium 8.9 Total Bilirubin 0.20 AST 11 ALT 15 Alkaline Phosphatase 93 Total Protein 7.3 Albumin 3.5 L Albumin/Globulin Ratio 0.9 Urine Color Urine Turbidity Urine pH Ur Specific [place] Urine Protein Urine Glucose (UA) Urine Ketones Urine Blood Urine Nitrite Urine Bilirubin Urine Urobilinogen Ur Leukocyte Esterase Urine WBC (Auto) Urine RBC (Auto) U Epithel Cells (Auto) 12/16/21 12/16/21 12/17/21 23:43 Unknown 02:20 WBC RBC Hgb Hct MCV MCH MCHC RDW Plt Count Lymph % (Auto) [place] % (Auto) Eos % (Auto) Baso % (Auto) Lymph # (Auto) [place] # (Auto) Eos # (Auto) Baso # (Auto) Seg Neutrophils % Seg Neutrophils # VBG pH 7.373 Sodium Potassium Chloride Carbon Dioxide Anion Gap BUN Creatinine Estimated GFR BUN/Creatinine Ratio Glucose POC Glucose 336 H Calcium Total Bilirubin AST ALT Alkaline Phosphatase Total Protein Albumin Albumin/Globulin Ratio Urine Color Straw Urine Turbidity Clear Urine pH 5.0 Ur Specific [place] 1.020 Urine Protein <15 mg/dl Urine Glucose (UA) >=500 Urine Ketones 20 Urine Blood Sm Urine Nitrite Neg Urine Bilirubin Neg Urine Urobilinogen < 2.0 Ur Leukocyte Esterase Tr Urine WBC (Auto) 2.0 Urine RBC (Auto) 1.0 U Epithel Cells (Auto) 5.0 - Radiology Data Radiology results: report reviewed, image reviewed INDICATION: possible perirectal abscess. TECHNIQUE: All CT scans at this location are performed using CT dose reduction for ALARA by means of automated exposure control. COMPARISON: None available. FINDINGS: There is inflammatory stranding in the right gluteal fold with a poorly defined area measuring about 5 cm adjacent to the distal rectum which could represent developing phlegmon. Remainder of the bowel appears normal. The uterus and ovaries appear normal. There is no pelvic adenopathy. There are no acute osseous abnormalities. IMPRESSION: 1. Inflammatory stranding in the right gluteal fold with poorly defined area measuring about 5 cm it could indicate developing perirectal phlegmon. Signer Name: Nitesh Odom MD Signed: 12/17/2021 5:07 AM Workstation Name: [id number] Transcribed By: SORAIDA Dictated By: Nitesh Odom MD Electronically Authenticated By: Nitesh Odom MD Signed Date/Time: 12/17/21506 DD/ 5 TD/TT: - Medical Decision Making CT no definite perirectal abscess. Symptoms are improved after Rocephin and fluids given in ED today. Plan DC to home with antibiotics. NSAIDs as needed pain, follow-up with primary care doctor, follow-up with general surgery should abscess return. Take all medications as prescribed. Patient verbalized agreement understanding discharge plan. Patient will be DC'd home in stable condition at this time. Patient currently alert oriented x3 amatory steady gait in no acute distress there is been no fever or chills no nausea no vomiting. Repeat Accu-Chek is 286 mg/dl Critical care attestation.: If time is entered above; I have spent that time in minutes in the direct care of this critically ill patient, excluding procedure time. ED Disposition Clinical Impression: Cellulitis of buttock, right DMII (diabetes mellitus, type 2) Qualifiers: Diabetes mellitus fpc insulin use: with fpc use Diabetes mellitus complication status: with skin complications Diabetes mellitus complication detail: with dermatitis Qualified Code(s): E11.620 - Type 2 diabetes mellitus with diabetic dermatitis; Z79.4 - assisted (current) use of insulin HTN (hypertension) Qualifiers: Hypertension type: unspecified Qualified Code(s): I10 - Essential (primary) hypertension Disposition: 01 HOME / SELF CARE / HOMELESS Is pt being admited?: No Does the pt Need Aspirin: No Condition: Stable Instructions: Diabetes Mellitus Type 2 in Adults (ED), Hypertension (ED), Insulin Treatment for Diabetes Mellitus, Cellulitis, Adult, Type 2 Diabetes Mellitus, Diagnosis, Adult, Hypertension, Adult, [id number] Additional Instructions: Take medications as prescribed, follow-up with your doctor in 2 to 3 days. Follow-up with general surgery if abscess returns worsen. Return to emergency should symptoms worsen. Prescriptions: Clindamycin [Clindamycin CAP] 300 mg PO Q6H 7 Days #28 cap metFORMIN XR [Glucophage XR] 500 mg PO BID #60 tab lisinopriL [Lisinopril] 20 mg PO DAILY #30 tablet Insulin NPH/Regular [NovoLIN 70/30] 75 unit SUB-Q BIDDIAB #5 vial Referrals: [facility] [Provider Group] - 3-5 Days BRANDON MAY MD [Staff Physician] - 3-5 Days VIDHYA KURTZ MD [Primary Care Provider] - 3-5 Days Forms: Work/School Release Form(ED)
[2021-12-17 00:21] LABS: Basophils % (Auto) 0.2 % (0.0-1.8); Eosinophils # (Auto) 0.1 K/mm3 (0.0-0.4); Hematocrit 39.7 % (30.3-42.9); Hemoglobin 12.7 gm/dl (10.1-14.3); Lymphocytes # (Auto) 1.7 K/mm3 (1.2-5.4); Lymphocytes % (Auto) 15.4 % (13.4-35.0); Mean Corpuscular HGB Conc 32 % (30-34); Mean Corpuscular Volume 87 fl (79-97); Monocytes # (Auto) 0.9 K/mm3 (0.0-0.8); Monocytes % (Auto) 8.5 % (0.0-7.3); Platelet Count 237 K/mm3 (140-440); Red Blood Count 4.57 M/mm3 (3.65-5.03); Red Cell Distribution Width 13.4 % (13.2-15.2)
[2021-12-17 00:32] LABS: Alanine Aminotransferase 15 units/L (7-56); Albumin 3.5 g/dL (3.9-5); BUN/Creatinine Ratio 10; Blood Urea Nitrogen 9 mg/dL (7-17); Calcium 8.9 mg/dL (8.4-10.2); Hemolysis Index 15
[2021-12-17 01:05] LABS: Bilirubin,Urine NEG (Negative); Blood,Urine SM (Negative); Color,Urine Straw (Yellow); Protein,Urine <15 mg/dL mg/dL (Negative); Urobilinogen,Urine < 2.0 mg/dL (<2.0)
[2021-12-17] MEDS ORDERED: INSULIN REGULAR, HUMAN 100 UNITS/1 ML SUB-Q ONE (02:27)
[2021-12-17] MEDS ORDERED: SODIUM CHLORIDE 0.9% 1000 ML 1,000 ML IV ONE (02:27)
[2021-12-17] MEDS ORDERED: cefTRIAXone/NS 1 GM/50 ML 1 GM/50 ML BAG IV ONE (03:56)
[2021-12-17] MEDS ORDERED: ONDANSETRON 4 MG/2 ML INJ IV ONE (05:05)
--- NOTE | 2021-12-17 05:11 | Cat Scan Report ---
CT pelvis wo con INDICATION: possible perirectal abscess. TECHNIQUE: All CT scans at this location are performed using CT dose reduction for ALARA by means of automated e xposure control. COMPARISON: None available. FINDINGS: There is inflammatory stranding in the right gluteal fold with a poorly defined area measuring about 5 cm adjacent to the distal rectum which could represent developing phlegmon. Remainder of the bowel appears normal. The uterus and ovaries appear normal. There is no pelvic adeno cindy. There are no acute osseous abnormalities. IMPRESSION: 1. Inflammatory stranding in the right gluteal fold with poorly defined area measuring about 5 cm it could indicate developing perirectal phlegmon. Signer Name: Nitesh Odom MD Signed: 12/17/2021 5:07 AM Workstation Name: [id number]
[2021-12-17 05:56] VITALS: BP 157/75
== END 2021-12-17 05:55 | disposition home or self-care (01) ==
LOC: ED 18:18
DX: L02.31 Cutaneous abscess of buttock (principal); E11.9 Type 2 diabetes mellitus without complications; I10 Essential (primary) hypertension; J45.909 Unspecified asthma, uncomplicated; Z98.890 Other specified postprocedural states; Z79.899 Other long term (current) drug therapy; F17.200 Nicotine dependence, unspecified, uncomplicated; Z90.49 Acquired absence of other specified parts of digestive tract
CPT/HCPCS: 36415; 72192; 80053; 81001; 82805; 82962; 85025; 96361; 96365; 96372; 96375; 99284; J0696; J2405; J7030; Q0162; Q9967; J1815